=== PATIENT | female | born 1985 | race Caucasian/White ===

== ENCOUNTER → 2017-05-30 16:24 | Outpatient (CLI) | payer MEDICARE, MEDICAID, SELFPAY ==
--- NOTE | 2017-05-30 16:38 | XR_ITS ---
XR lumbar spine min 4V Ordering Physician: Cinthya Salcedo Patient Age: 31 years: Female HISTORY: ITS.REASON: ACUTE MIDLINE LOW BACK PAIN WITHOUT SCIATICA Low back pain TECHNIQUE: 5 view lumbar spine series COMPARISON :None available FINDINGS The lumbar vertebral bodies show no acute findings. 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 The vertebral bodies, pedicles otherwise unremarkable. And disc spaces well-maintained throughout Incidental segmented L1 transverse process to the left most likely reflects old feature either congenital or from old trauma here. It appears to have a sclerotic margin. It is old and not acute or recent S1 partially segmented noted. Disc spaces are fairly well maintained. No pars defects. Trace degenerative facet changes L5/S1 L4/5. IMPRESSION: 1 No acute findings lumbar spine. No acute findings lumbar vertebra. Disc spaces well-maintained. ... 2 . Suggestion of minor early degenerative facet changes L5/S1 3. Minor incidental observations in text.: ... Limbus vertebra variant L3 incidental noted.. ... Old subtle segmented left L1 transverse proces
== END ==
PROVIDERS: PCP Nurse Practitioner Family; Visit Provider Nurse Practitioner Family
DX: M54.5 Low back pain (principal)
CPT/HCPCS: 72110

== ENCOUNTER → 2017-06-14 14:22 | Outpatient (CLI) | payer MEDICARE, MEDICAID, SELFPAY ==
--- NOTE | 2017-06-14 14:28 | MR_ITS ---
MR lumbar spine wo con, MR 3-d myelogram/MRCP HISTORY: Low back pain with leg pain ITS.REASON: LOW BACK PAIN, OTHER CONGENITAL MALFORMATIONS ORDERING PHYSICIAN: Cinthya Salcedo PATIENT AGE: 32 years COMPARISON: Lumbar spine film of 05/30/2017 TECHNIQUE: Standard multiplanar multiecho sequences are performed without contrast. 3-D MIP and myelographic images are also rendered and reviewed FINDINGS: There is normal alignment. The spinal cord ends at the L2-L3 level. There is mild motion artifact which does somewhat obscure fine detail. L1-L2: Small left paracentral disc protrusion causing mild left sided lateral recess and foraminal narrowing L2-L3: Unremarkable. Limbus vertebra noted at L3 anterior superiorly better demonstrated on the plain films. L3-L4: Unremarkable. L4-L5: Unremarkable. L5-S1: There is a broad-based small central disc herniation slightly eccentric towards the right causing narrowing of the canal along with bilateral lateral recess narrowing right more extensive than the left impinging upon both S1 nerve roots slightly more prominent on the right. There is mild bilateral foraminal narrowing. There is a transitional segment at the lumbosacral junction which is labeled as S1 and correlates with the radiographs performed previously. IMPRESSION: 1. Small left paracentral disc protrusion at L1-L2. 2. Broad-based small central disc herniation slightly eccentric toward the right at L5-S1 causing bilateral foraminal narrowing right greater than left and narrowing of the canal. There is impingement upon both S1 nerve roots slightly more prominent on the right.
== END ==
PROVIDERS: Family Provider Internal Medicine; PCP Nurse Practitioner Family; Visit Provider Nurse Practitioner Family
DX: M54.5 Low back pain (principal); Q76.49 Other congenital malformations of spine, not associated with scoliosis
CPT/HCPCS: 72148; 76376

== ENCOUNTER 2017-07-05 21:07 | Emergency (ER) | payer MEDICARE, MEDICAID, SELFPAY ==
[2017-07-05 21:20] VITALS: BP 130/102; PULSE 88; RESP 18; TEMP 36.6; O2SAT 98; BMI 26.9
[2017-07-05 21:51] LABS: Strep Scrn Group A (Rapid) Negative (Negative)
--- NOTE | 2017-07-05 22:01 | HMH.EDPFEV ---
ED Disposition Clinical Impression: Viral infection Disposition: Home, Self-Care Condition on Discharge: Good Instructions: DI for Fever (Symptom) -- Adult Additional Instructions: call pcp for follow up Referrals: Cinthya Salcedo APRN [Primary Care Provider] - - Critical Care Critical Care Time: No Attestation: On 07/05/17, the high probability of a clinically significant, sudden or life threatening deterioration of the following system(s) required my full and direct attention, intervention and personal management. The time I documented below is in addition to time spent performing reported procedures but includes the following listed in this critical care notation. Medical Decision Making - Medical Records Medical records reviewed: Yes: I reviewed the patient's medical records. Vital Signs: 07/05/17 21:20 Temperature 97.8 F Temperature Source Oral Pulse Rate [Brachial] 88 Respiratory Rate 18 Blood Pressure [Right Arm] 130/102 Blood Pressure Mean [Right Arm] 111 Blood Pressure Source [Right Arm] Automatic Cuff Blood Pressure Position [Right Arm] Sitting 02 Sat by Pulse Oximetry 98 Oxygen Delivery Method Room Air - Lab Data Lab results reviewed: Yes: I reviewed the patient's lab results. Lab Results 07/05/17 21:30: Influenza Type A Ag Negative, Influenza Type B Ag Negative 07/05/17 21:30: Group A Strep Rapid Negative Orders (Tests/Meds): ORDERS Category Date Time Status Strep Screen Confirmation Routine Micro 07/05/17 21:30 Received - [place] Inquiry Pt receiving controlled substance: No Pediatric Fever HPI - General Chief Complaint: Fever Stated Complaint: Strep Test Time Seen by Provider: 07/05/17 22:01 Mode of Arrival: Ambulatory Source of Information: Patient, Medical Record Limitations: No Limitations Description of Symptoms (Recalled from ER Triage Doc. by RN): states not feeling well, thinks daughter has strep, and wants to be checked - History of Present Illness HPI narrative: not feeling well child with possible infection MD complaint: fever, sore throat Onset (ago): day(s) Context: sick contacts - Related Data Home Medications Medication Instructions Recorded Confirmed No Known Home Medications [No 07/05/17 07/05/17 Known Home Medications] Allergies Allergy/AdvReac Type Severity Reaction Status Date / Time nitrofurantoin Allergy Verified 07/05/17 21:29 [From Macrobid] Pediatric Past Medical History - Past Medical History Attestation: Yes: The following information was validated with the patient. ROS Obtained: Yes All systems reviewed & no additional complaints - Constitutional Constitutional: Denies fever(s) - Eyes Eyes: Denies change in vision - ENT Ears, Nose, Mouth, and Throat: Denies sore throat - Cardiovascular Cardiovascular: Denies chest pain - Respiratory Respiratory: No cough - Gastrointestinal Gastrointestingal: Denies: abdominal pain - Musculoskeletal Musculoskeletal: Denies joint pain - Integumentary/Breasts Skin/Breast: Denies rash - Neurologic Neurologic: Denies headache(s), Denies seizure-like activity Physical Exam - General General appearance: alert, in no apparent distress - Head Head exam: normocephalic - Eye Eye exam: Present: PERRL, EOMI. Absent: scleral icterus - ENT ENT exam: Present: normal oropharynx, mucous membranes moist, TM's normal bilaterally - Neck Neck exam: Present: trachea midline - Respiratory Respiratory exam: Present: normal lung sounds bilaterally. Absent: respiratory distress - Cardiovascular Cardiovascular exam: Present: regular rate. Absent: systolic murmur - Abdominal Exam Abdominal exam: Present: soft - Neurological Exam Neurological exam: Present: alert, oriented X3, CN II-XII intact - Psychiatric Psychiatric exam: Present: normal affect - Skin Skin exam: Absent: rash - Lymphatic Lymphatic Findings: no adenopathy
[2017-07-05 22:31] VITALS: BP 119/89; PULSE 90; RESP 20; TEMP 36.7; O2SAT 100
== END 2017-07-05 22:32 | disposition home or self-care (01) ==
PROVIDERS: Emergency Provider Emergency Medicine; Family Provider Internal Medicine; PCP Nurse Practitioner Family
DX: B34.9 Viral infection, unspecified (principal); Z88.8 Allergy status to other drugs, medicaments and biological substances
CPT/HCPCS: 87275; 87276; 87430; 99282

== ENCOUNTER → 2017-08-22 14:04 | Outpatient (POV) | payer MEDICARE, MEDICAID, SELFPAY ==
[2017-08-22 14:18] VITALS: BP 128/95; PULSE 110; RESP 20; TEMP 36.6; O2SAT 98
--- NOTE | 2017-08-22 15:10 | HMH.PMCON ---
Assessment and Plan (1) Degenerative disc disease, lumbar Current visit: Yes Status: Chronic Category: Medical Code(s): M51.36 - Other intervertebral disc degeneration, lumbar region (2) Radiculopathy Current visit: Yes Status: Chronic Category: Medical Code(s): M54.10 - Radiculopathy, site unspecified - Assessment and plan all Dx Assessment and Plan for all problems:: We will plan a L4-L5 lumbar epidural steroid injection. Patient tried and failed anti-inflammatories, medications, physical therapy. I will follow-up with this patient after her injection and reassess her symptoms at that time This note was dictated using voice recognition software and may contain errors or omissions HPI - Data of Consult Consult date: 08/22/17 Requesting Physician: Brianne Oates APRN Primary Care Provider: Cinthya Salcedo APRN Family Provider: Sebastian Sterling - Consult Narrative Reason for consult: Back pain History of present illness: Ms. Bañuelos is a 32 year old female presents for consultation in regards to her low back pain and leg pain. Patient states that her pain is 7 out of 10 today. She states that a heating pad helps decrease her pain while all activity increases it. Patient's tried and failed physical therapy. Patient states she does have weakness in her legs at times. Patient has tried diclofenac, gabapentin, ibuprofen, naproxen, tizanidine, Topamax with little relief. Patient states she has seen a neurosurgeon and she was not a surgical candidate. Patient states surgeon discussed potential epidural steroid injections. Patient does have left paracentral disc protrusion at L1-L2 and impingement of the S1 nerve root. Patient is interested in injective therapy CC: Brianne Oates APRN [facility] History I have reviewed the patient's past medical history: Yes Medical History: Denies:: Cancer, Diabetes Mellitus Type 1, Diabetes Mellitus Type 2, MRSA Other Medical History: Reports: Anemia, Arthritis Amputation: No - *Social History Educational Level: Attended High School Smoking Status: Never smoker Alcohol Intake: never Occupational Status: disabled Housing: apartment Household Members: significant other, children - Psychiatric History Expresses thoughts of harming self/others: None Suicide Plan Description: No Plan *Family Hx:: Unable to obtain Review of Systems - Review of Systems ROS General: no recent weight change, no fever, no sleep disturbances Respiratory: no cough, no shortness of air, no recurring pulmonary infections Cardiovascular/Peripheral Vascular: No chest pain, No palpitations, no edema, no shortness of breath. Gastrointestinal: no incontinence, normal bowel movements reported Genitourinary: no incontinence Musculoskeletal: Back pain, bilateral leg pain Psychiatric: normal mood/ affect, Neurological: Weakness in bilateral lower extremities at times, [denies balance issues] Meds Home Medications Medication Instructions Recorded Confirmed Type No Known Home Medications 07/05/17 07/05/17 History Allergies Allergy/AdvReac Type Severity Reaction Status Date / Time nitrofurantoin Allergy Verified 07/05/17 21:29 [From Macrobid] Objective Vital signs: Temp Pulse Resp BP Pulse Ox 97.8 F 110 H 20 128/95 98 08/22/17 14:18 08/22/17 14:18 08/22/17 14:18 08/22/17 14:18 08/22/17 14:18 Narrative: Physical Exam General: Alert and oriented x3, no acute distress, pleasant and cooperative, [on room air] Lungs: Resps E/U, Symmetrical chest expansion, Eyes: PERRL Musculoskeletal: Flexion and extension of lumbar spine somewhat guarded secondary to pain, deep tendon reflexes normal, strength in upper and lower extremities [5/5], [abnormal gait noted], positive straight leg test bilaterally at 30? Neurological: speech clear, small products ii assembler equal, no gross sensory deficits Opioid Risk Tool - Opioid Risk Tool-Female Fami
--- NOTE | 2017-08-22 15:13 | P.CONS_ITS ---
Assessment and Plan (1) Degenerative disc disease, lumbar Current visit: Yes Status: Chronic Category: Medical Code(s): M51.36 - Other intervertebral disc degeneration, lumbar region (2) Radiculopathy Current visit: Yes Status: Chronic Category: Medical Code(s): M54.10 - Radiculopathy, site unspecified - Assessment and plan all Dx Assessment and Plan for all problems:: We will plan a L4-L5 lumbar epidural steroid injection. Patient tried and failed anti-inflammatories, medications, physical therapy. I will follow-up with this patient after her injection and reassess her symptoms at that time This note was dictated using voice recognition software and may contain errors or omissions HPI - Data of Consult Consult date: 08/22/17 Requesting Physician: Brianne Oates APRN Primary Care Provider: Cinthya Salcedo APRN Family Provider: Sebsatian Sterling - Consult Narrative Reason for consult: Back pain History of present illness: Ms. Bañuelos is a 32 year old female presents for consultation in regards to her low back pain and leg pain. Patient states that her pain is 7 out of 10 today. She states that a heating pad helps decrease her pain while all activity increases it. Patient's tried and failed physical therapy. Patient states she does have weakness in her legs at times. Patient has tried diclofenac, gabapentin, ibuprofen, naproxen, tizanidine, Topamax with little relief. Patient states she has seen a neurosurgeon and she was not a surgical candidate. Patient states surgeon discussed potential epidural steroid injections. Patient does have left paracentral disc protrusion at L1-L2 and impingement of the S1 nerve root. Patient is interested in injective therapy CC: Brinane Oates APRN [facility] History I have reviewed the patient's past medical history: Yes Medical History: Denies:: Cancer, Diabetes Mellitus Type 1, Diabetes Mellitus Type 2, MRSA Other Medical History: Reports: Anemia, Arthritis Amputation: No - *Social History Educational Level: Attended High School Smoking Status: Never smoker Alcohol Intake: never Occupational Status: disabled Housing: apartment Household Members: significant other, children - Psychiatric History Expresses thoughts of harming self/others: None Suicide Plan Description: No Plan *Family Hx:: Unable to obtain Review of Systems - Review of Systems ROS General: no recent weight change, no fever, no sleep disturbances Respiratory: no cough, no shortness of air, no recurring pulmonary infections Cardiovascular/Peripheral Vascular: No chest pain, No palpitations, no edema, no shortness of breath. Gastrointestinal: no incontinence, normal bowel movements reported Genitourinary: no incontinence Musculoskeletal: Back pain, bilateral leg pain Psychiatric: normal mood/ affect, Neurological: Weakness in bilateral lower extremities at times, [denies balance issues] Meds Home Medications Medication Instructions Recorded Confirmed Type No Known Home Medications 07/05/17 07/05/17 History Allergies Allergy/AdvReac Type Severity Reaction Status Date / Time nitrofurantoin Allergy Verified 07/05/17 21:29 [From Macrobid] Objective Vital signs: Temp Pulse Resp BP Pulse Ox 97.8 F 110 H 20 128/95 98 08/22/17 14:18 08/22/17 14:18 08/22/17 14:18 08/22/17 14:18 08/22/17 14:18
== END ==
PROVIDERS: Family Provider Internal Medicine; PCP Nurse Practitioner Family; Visit Provider Clinical Nurse Specialist Family Health
DX: M51.36 Other intervertebral disc degeneration, lumbar region (principal)
CPT/HCPCS: 99202

== ENCOUNTER → 2017-11-07 11:15 | Outpatient (POV) | payer MEDICARE, MEDICAID, SELFPAY ==
[2017-11-07 11:23] VITALS: BP 120/85; PULSE 78; RESP 18; O2SAT 99; BMI 22.2
--- NOTE | 2017-11-07 11:43 | P.CONS_ITS ---
[facility] Pain Management SOAP Note Subjective:: Patient is a pleasant 32-year-old white female who we are treating for low back pain and pain. Most of her pain is down her right leg patient is following up after her first lumbar epidural injection. She states that she was worse for about 4 days however she is doing better today she rates her pain relieved up to 50%. Patient is interested in completing a epidural steroid injection series. Patient's tried and failed physical therapy, oral medications and anti- inflammatories. Patient rates her pain a 6 out of 10 today. Patient states that her pain is worse due to the fact that she is sleeping on a futon. Patient states that she is unable to purchase a mattress after she threw her last one out due to bedbugs. Patient states most of her pain is in her low back and down her right leg however she does have some left leg pain at times. ROS General: no recent weight change, no fever, no sleep disturbances Respiratory: no cough, no shortness of air, no recurring pulmonary infections Cardiovascular/Peripheral Vascular: No chest pain, No palpitations, no edema, no shortness of breath. Gastrointestinal: no incontinence, normal bowel movements reported Genitourinary: no incontinence Musculoskeletal: Back pain, leg pain Psychiatric: normal mood/ affect Neurological: [denies weakness in extremities], [denies balance issues] Objective:: Physical Exam General: Alert and oriented x3, no acute distress, pleasant and cooperative, [ on room air] Lungs: Resps E/U, Symmetrical chest expansion, Eyes: PERRL Musculoskeletal: Flexion and extension of lumbar spine somewhat guarded secondary to pain, deep tendon reflexes normal, strength in upper and lower extremities [5/5], slightly antalgic gait noted, positive straight leg raise test at 30? on the right side. Neurological: speech clear, financial administrative assistant equal, no gross sensory deficits Assessment:: Degenerative disc disease of the lumbar spine with lumbar radiculopathy some Plan:: We will repeat her L4-L5 lumbar epidural steroid injection I will follow-up with this patient after her second injection. Patient is not on any anticoagulation therapy. Patient's tried and failed other conservative therapies. This note was dictated using voice recognition software and may contain errors or omissions
== END ==
PROVIDERS: Family Provider Internal Medicine; PCP Nurse Practitioner Family; Visit Provider Clinical Nurse Specialist Family Health
DX: M54.16 Radiculopathy, lumbar region (principal)
CPT/HCPCS: 99212

== ENCOUNTER → 2018-01-16 09:25 | Outpatient (POV) | payer MEDICARE, MEDICAID, SELFPAY ==
[2018-01-16 09:36] VITALS: BP 118/87; PULSE 105; RESP 18; O2SAT 100; BMI 25.6
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
== END ==
PROVIDERS: Family Provider Internal Medicine; PCP Family Medicine; Visit Provider Clinical Nurse Specialist Family Health
DX: M51.16 Intervertebral disc disorders with radiculopathy, lumbar region (principal)
CPT/HCPCS: 99213

== ENCOUNTER → 2018-02-14 08:58 | Outpatient (CLI) | payer MEDICARE, MEDICAID, SELFPAY ==
[2018-02-14 09:15] VITALS: BP 109/92; PULSE 89; RESP 18; TEMP 36.7; O2SAT 93
== END ==
PROVIDERS: Family Provider Internal Medicine; PCP Family Medicine; Visit Provider Allergy & Immunology
DX: J45.50 Severe persistent asthma, uncomplicated (principal)
CPT/HCPCS: 96372; J2182

== ENCOUNTER → 2018-03-07 08:54 | Outpatient (POV) | payer MEDICARE, MEDICAID, SELFPAY ==
[2018-03-07 09:21] VITALS: BP 133/82; PULSE 107; RESP 18; O2SAT 98; BMI 25.4
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
== END ==
PROVIDERS: PCP Family Medicine; Visit Provider Clinical Nurse Specialist Family Health
DX: M51.16 Intervertebral disc disorders with radiculopathy, lumbar region (principal)
CPT/HCPCS: 99213

== ENCOUNTER → 2018-03-13 07:58 | Outpatient (CLI) | payer MEDICARE, MEDICAID, SELFPAY ==
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
== END ==
PROVIDERS: PCP Nurse Practitioner Family; Visit Provider Clinical Nurse Specialist Family Health
DX: M54.5 Low back pain (principal)
CPT/HCPCS: 72148; 76376

== ENCOUNTER 2018-03-14 08:23 | Outpatient (CLI) | payer MEDICARE, MEDICAID, SELFPAY ==
[2018-03-14 09:00] VITALS: BP 113/79; PULSE 92; RESP 20; TEMP 36.6; O2SAT 97
== END 2018-03-14 09:10 | disposition home or self-care (01) ==
LOC: INF 08:25
PROVIDERS: Visit Provider Allergy & Immunology
DX: J45.50 Severe persistent asthma, uncomplicated (principal)
CPT/HCPCS: 96372; J2182

== ENCOUNTER 2018-04-11 08:45 | Outpatient (CLI) | payer MEDICARE, MEDICAID, SELFPAY ==
[2018-04-11 09:04] VITALS: BP 129/91; PULSE 93; RESP 20; TEMP 36.3; O2SAT 99
== END 2018-04-11 09:40 | disposition home or self-care (01) ==
LOC: INF 08:52
PROVIDERS: Visit Provider Allergy & Immunology
DX: J45.50 Severe persistent asthma, uncomplicated (principal)
CPT/HCPCS: 96372; J2182

== ENCOUNTER → 2018-04-17 08:43 | Outpatient (POV) | payer MEDICARE, MEDICAID, SELFPAY ==
[2018-04-17 08:54] VITALS: BP 149/95; PULSE 99; RESP 18; O2SAT 99; BMI 26.0
--- NOTE | 2018-04-17 09:02 | HMH.PAINSOAP ---
[facility] Pain Management SOAP Note Subjective:: Patient is a pleasant 32-year-old white female who presents today for follow-up after MRI. Patient rates her pain a 6 out of 10 and states that she has continual pain down her legs. Patient has tried injections multiple times with no relief. Patient does have an L5-S1 bulging disc. We will have her receive the new MRI so that she can be seen by a neurosurgeon. ROS General: no recent weight change, no fever, no sleep disturbances Respiratory: no cough, no shortness of air, no recurring pulmonary infections Cardiovascular/Peripheral Vascular: No chest pain, No palpitations, no edema, no shortness of breath. Gastrointestinal: no incontinence, normal bowel movements reported Genitourinary: no incontinence Musculoskeletal: Back pain, leg pain Psychiatric: normal mood/ affect Neurological: [denies weakness in extremities], [denies balance issues] Objective:: Physical Exam General: Alert and oriented x3, no acute distress, pleasant and cooperative, [on room air] Lungs: Resps E/U, Symmetrical chest expansion, Eyes: PERRL Musculoskeletal: Flexion and extension of lumbar spine somewhat guarded secondary to pain, deep tendon reflexes normal, strength in upper and lower extremities [5/5], slightly antalgic gait noted Neurological: speech clear, septic tank service technician equal, no gross sensory deficits Assessment:: 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 Stein. This note was dictated using voice recognition software and may contain errors or omissions
--- NOTE | 2018-04-17 09:05 | P.CONS_ITS ---
[facility] Pain Management SOAP Note Subjective:: Patient is a pleasant 32-year-old white female who presents today for follow-up after MRI. Patient rates her pain a 6 out of 10 and states that she has continual pain down her legs. Patient has tried injections multiple times with no relief. Patient does have an L5-S1 bulging disc. We will have her receive the new MRI so that she can be seen by a neurosurgeon. ROS General: no recent weight change, no fever, no sleep disturbances Respiratory: no cough, no shortness of air, no recurring pulmonary infections Cardiovascular/Peripheral Vascular: No chest pain, No palpitations, no edema, no shortness of breath. Gastrointestinal: no incontinence, normal bowel movements reported Genitourinary: no incontinence Musculoskeletal: Back pain, leg pain Psychiatric: normal mood/ affect Neurological: [denies weakness in extremities], [denies balance issues] Objective:: Physical Exam General: Alert and oriented x3, no acute distress, pleasant and cooperative, [on room air] Lungs: Resps E/U, Symmetrical chest expansion, Eyes: PERRL Musculoskeletal: Flexion and extension of lumbar spine somewhat guarded secondary to pain, deep tendon reflexes normal, strength in upper and lower extremities [5/5], slightly antalgic gait noted Neurological: speech clear, 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 Stein. This note was dictated using voice recognition software and may contain errors or omissions
== END ==
PROVIDERS: PCP Nurse Practitioner Family; Visit Provider Clinical Nurse Specialist Family Health
DX: M51.16 Intervertebral disc disorders with radiculopathy, lumbar region (principal)
CPT/HCPCS: 99213

== ENCOUNTER 2018-05-16 09:13 | Outpatient (CLI) | payer MEDICARE, MEDICAID, SELFPAY ==
[2018-05-16 09:20] VITALS: BP 119/77; PULSE 93; RESP 20; TEMP 36.5; O2SAT 99
== END 2018-05-16 09:45 | disposition home or self-care (01) ==
LOC: INF 09:13
PROVIDERS: Visit Provider Allergy & Immunology
DX: J45.50 Severe persistent asthma, uncomplicated (principal)
CPT/HCPCS: 96372; J2182

== ENCOUNTER → 2018-06-09 07:54 | Outpatient (CLI) | payer OTHER, MEDICARE, MEDICAID, SELFPAY ==
--- NOTE | 2018-06-09 07:59 | MR_ITS ---
MR cervical spine wo con, MR 3-d myelogram/MRCP HISTORY: Neck pain, headaches, bilateral shoulder pain with tingling down left arm ITS.REASON: HEADACHES, NECK PAIN ORDERING PHYSICIAN: Manjula Ray PATIENT AGE: 32 years Comparison: None TECHNIQUE: Standard multiplanar multiecho sequences are performed without contrast. 3-D MIP and myelographic images are also rendered and reviewed FINDINGS: There is mild degree of motion artifact which somewhat degrades fine detail. There is slight reversal the cervical lordosis which may be due to positioning or muscle spasm The odontoid process is prominent and angles posteriorly causing narrowing of the craniocervical junction. There is mild dorsal buckling of the upper cervical cord. However, the odontoid process does not appear to be causing any direct impingement upon the cord. C2-C3: Unremarkable. C3-C4: Unremarkable. C4-C5: There is a small central disc herniation with minimal superior extrusion. This is causing some compression upon the anterior aspect of the cord and flattening of the cord anteriorly. There is resultant narrowing of the canal at 8 mm from the disc. C5-C6: Minimal central disc protrusion versus prominent posterior longitudinal ligament with narrowing of the canal at 10 mm. C6-C7: There is a small broad-based central and right paracentral disc protrusion which is causing narrowing of the canal at 9 mm and mild impingement and mild flattening of the central right aspect of the cord. C7-T1: Unremarkable. IMPRESSION: 1. Reversal of the cervical lordosis which may be due to patient positioning or muscle spasm. 2. Prominent odontoid process which angles posteriorly causing narrowing of the craniocervical junction at approximately 10 mm. There is mild dorsal buckling of the upper cervical cord. However, the odontoid process does not appear to be causing any direct impingement upon the cord. 3. C4-C5: There is a small central disc herniation with minimal superior extrusion. This is causing some compression upon the anterior aspect of the cord and flattening of the cord anteriorly. There is resultant narrowing of the canal at 8 mm from the disc. 4. C5-C6: Minimal central disc protrusion versus prominent posterior longitudinal ligament with narrowing of the canal at 10 mm. 5. C6-C7: There is a small broad-based central and right paracentral disc protrusion which is causing narrowing of the canal at 9 mm and mild impingement and mild flattening of the central right aspect of the cord
== END ==
PROVIDERS: PCP Family Medicine; Visit Provider Physician Assistant Medical
DX: M54.2 Cervicalgia (principal); R51 Headache
CPT/HCPCS: 72141; 76376

== ENCOUNTER 2018-06-13 08:42 | Outpatient (CLI) | payer MEDICARE, MEDICAID, SELFPAY ==
[2018-06-13 08:56] VITALS: BP 140/85; PULSE 100; RESP 20; TEMP 36.6; O2SAT 100
== END 2018-06-13 09:30 | disposition home or self-care (01) ==
LOC: INF 08:42
PROVIDERS: Visit Provider Allergy & Immunology
DX: J45.50 Severe persistent asthma, uncomplicated (principal)
CPT/HCPCS: 96372; J2182

== ENCOUNTER 2018-07-25 09:02 | Outpatient (CLI) | payer MEDICARE, MEDICAID, SELFPAY ==
[2018-07-25 09:26] VITALS: BP 107/58; PULSE 105; RESP 18; TEMP 36.8; O2SAT 98
== END 2018-07-25 09:50 | disposition home or self-care (01) ==
LOC: INF 09:02
PROVIDERS: Visit Provider Allergy & Immunology
DX: J45.50 Severe persistent asthma, uncomplicated (principal)
CPT/HCPCS: 96372; J2182

== ENCOUNTER 2018-08-25 08:56 | Outpatient (CLI) | payer MEDICARE, MEDICAID, SELFPAY ==
[2018-08-25 08:58] VITALS: BMI 24.2
[2018-08-25 09:04] VITALS: BP 124/77; PULSE 105; RESP 20; TEMP 36.7; O2SAT 92
== END 2018-08-25 09:49 | disposition home or self-care (01) ==
LOC: INF 08:56
PROVIDERS: Visit Provider Allergy & Immunology
DX: J45.50 Severe persistent asthma, uncomplicated (principal)
CPT/HCPCS: 96372; J2182

== ENCOUNTER 2018-09-22 08:35 | Outpatient (CLI) | payer MEDICARE, MEDICAID, SELFPAY ==
[2018-09-22 08:55] VITALS: BP 107/73; PULSE 96; RESP 20; O2SAT 98
== END 2018-09-22 09:20 | disposition home or self-care (01) ==
LOC: INF 08:39
PROVIDERS: Visit Provider Allergy & Immunology
DX: J45.50 Severe persistent asthma, uncomplicated (principal)
CPT/HCPCS: 96372; J2182

== ENCOUNTER → 2018-10-20 09:20 | Outpatient (CLI) | payer MEDICARE, MEDICAID, SELFPAY ==
--- NOTE | 2018-10-20 09:26 | XR_ITS ---
XR shoulder RT min 2V HISTORY: ITS.REASON: ACUTE RT SHOULDER PAIN, RT ARM NUMBNESS ORDERING PHYSICIAN: Cinthya Salcedo APRN PATIENT AGE: 33 years Comparison: None FINDINGS: No fracture or dislocation. No lytic or blastic change. There is normal mineralization. The joint spaces are well-preserved. No significant degenerative/arthritic changes. No erosive changes evident. IMPRESSION: Negative, no acute finding
== END ==
PROVIDERS: PCP Nurse Practitioner Family; Visit Provider Nurse Practitioner Family
DX: M25.511 Pain in right shoulder (principal); R20.0 Anesthesia of skin
CPT/HCPCS: 73030

== ENCOUNTER 2018-10-25 11:50 | Outpatient (CLI) | payer MEDICARE, MEDICAID, SELFPAY ==
[2018-10-25 12:10] VITALS: BP 130/95; PULSE 113; RESP 18; TEMP 36.3; O2SAT 97
== END 2018-10-25 12:34 | disposition home or self-care (01) ==
LOC: INF 11:59
PROVIDERS: Visit Provider Allergy & Immunology
DX: J45.50 Severe persistent asthma, uncomplicated (principal)
CPT/HCPCS: 96372; J2182

== ENCOUNTER 2018-11-22 12:47 | Outpatient (CLI) | payer MEDICARE, MEDICAID, SELFPAY ==
[2018-11-22 13:05] VITALS: BP 114/71; PULSE 103; RESP 18; TEMP 36.6; O2SAT 96
== END 2018-11-22 13:25 | disposition home or self-care (01) ==
LOC: INF 12:47
PROVIDERS: Visit Provider Allergy & Immunology
DX: J45.50 Severe persistent asthma, uncomplicated (principal)
CPT/HCPCS: 96372; J2182

== ENCOUNTER 2018-12-20 10:45 | Outpatient (CLI) | payer MEDICARE, MEDICAID, SELFPAY ==
[2018-12-20 11:05] VITALS: BP 117/84; PULSE 93; RESP 18; O2SAT 100
== END 2018-12-20 11:20 | disposition home or self-care (01) ==
LOC: INF 10:49
PROVIDERS: Visit Provider Allergy & Immunology
DX: J45.50 Severe persistent asthma, uncomplicated (principal)
CPT/HCPCS: 96372; J2182

== ENCOUNTER 2019-01-17 09:46 | Outpatient (CLI) | payer MEDICARE, MEDICAID, SELFPAY ==
[2019-01-17 10:16] VITALS: BP 112/79; PULSE 104; RESP 20; TEMP 36.8; O2SAT 100
== END 2019-01-17 10:35 | disposition home or self-care (01) ==
LOC: INF 09:46
PROVIDERS: Visit Provider Allergy & Immunology
DX: J45.50 Severe persistent asthma, uncomplicated (principal)
CPT/HCPCS: 96372; J2182

== ENCOUNTER 2021-07-29 11:04 | Emergency (ER) | payer MEDICARE, MEDICAID, SELFPAY ==
[2021-07-29 13:38] VITALS: BP 120/90; PULSE 104; RESP 19; TEMP 37.1; O2SAT 100; BMI 25.2
--- NOTE | 2021-07-29 14:18 | HMH.EDUTC ---
[facility] [place] Disposition Clinical Impression: Viral syndrome Disposition: Home, Self-Care Condition on Discharge: Good Instructions: DI for Viral Syndrome Additional Instructions: Drink plenty of fluids. Take tylenol or ibuprofen for pain or fever. Take the medications as directed. Follow up with your regular doctor. GO TO THE ER FOR ANY WORSENING SYMPTOMS Prescriptions: Brompheniramine/Pseudoephed/Dm [Bromfed Dm Cough Syrup] 5 ml PO Q6HP PRN #240 ml PRN Reason: Cough Transmission Status: Received by [facility] Brompheniramine/Pseudoephed/Dm [Bromfed Dm Cough Syrup] 5 ml PO Q6HP PRN #240 ml PRN Reason: Cough Transmission Status: Received by [facility] Ondansetron [Zofran 4mg ODT] 4 mg PO Q8HP PRN #20 tab PRN Reason: Nausea Transmission Status: Received by [facility] Referrals: James Duff MD [Primary Care Provider] - Forms: Work/School Release Time of Disposition: 15:28 Medical Decision Making - Medical Records Medical records reviewed: No: I reviewed the patient's medical records. - [place] Inquiry Pt receiving controlled substance: No Vital Signs: 07/29/21 13:38 07/29/21 15:19 Temperature 98.7 F 98.7 F Temperature Source Oral Pulse Rate 104 H Pulse Rate [Left] 104 H Respiratory Rate 19 19 Blood Pressure 120/90 Blood Pressure [Right Arm] 120/90 Blood Pressure Mean [Right Arm] 100 02 Sat by Pulse Oximetry 100 - Lab Data Lab results reviewed: Yes: I reviewed the patient's lab results. Lab Results 07/29/21 13:45: Influenza Type A Ag Negative, Influenza Type B Ag Negative [facility] [place] HPI - General Stated complaint: sore throat, h/a, congestion, cough Time Seen by Provider: 07/29/21 14:18 Mode of Arrival: Ambulatory Source of Information: Patient Limitations: No Limitations Description of Symptoms (Recalled from Triage Doc. by RN): pt c/o a sore throat, cough, wheezing, fatigue, MAC and chest congestion x2 wks. pt states she is on an antibiotic for a UTI. HEENT Symptoms (Recalled from RN notes): Yes Resp Symptoms (Recalled from RN notes): Yes Skin Symptoms (Recalled from RN notes): No MS Symptoms (Recalled from RN notes): No Functional Status (Recalled from RN notes): wnl - History of Present Illness Provider Complaint: She states that she has felt bad for the past 2 weeks. she has a cough, chest congestion. - Related Data Home Medications Medication Instructions Recorded Confirmed Albuterol Sulfate [Proair Hfa 90 mcg INHALATION BID 08/23/17 01/17/19 90mcg/puff Inh] Diclofenac Sodium [Diclofenac 75mg 75 mg PO BID 08/23/17 01/17/19 Tab] Montelukast Sodium [Montelukast 10 mg PO DAILY 08/23/17 01/17/19 10mg Tab] Albuterol Sulfate [Albuterol 1.25 mg IH NEEDED PRN 02/14/18 01/17/19 0.042% 1.25mg/3mL neb] Azelastine HCl [Astepro] 205.5 mcg NS DAILY 02/14/18 01/17/19 Fluticasone/Salmeterol [Advair 1 inh IH BID 02/14/18 01/17/19 100/50mcg diskus] norgestimate-ethinyl estradioL 1 each PO DAILY 08/25/18 01/17/19 [Sprintec 28 Day Tablet] loratadine 10 mg capsule 10 mg PO DAILY 12/12/18 01/17/19 Previous Rx's Medication Instructions Recorded oxcarbazepine 150 mg tablet See Rx Instructions PO BID #30 tab 12/12/18 Brompheniramine/Pseudoephed/Dm 5 ml PO Q6HP PRN #240 ml 07/29/21 [Bromfed Dm Cough Syrup] Brompheniramine/Pseudoephed/Dm 5 ml PO Q6HP PRN #240 ml 07/29/21 [Bromfed Dm Cough Syrup] Ondansetron [Zofran 4mg ODT] 4 mg PO Q8HP PRN #20 tab 07/29/21 Allergies Allergy/AdvReac Type Severity Reaction Status Date / Time nitrofurantoin Allergy Mild Nausea Verified 12/12/18 10:02 [From Macrobid] olanzapine [From Zyprexa] Allergy Mild Nausea Verified 12/12/18 10:02 sertraline [From Zoloft] Allergy Mild Nausea Verified 12/12/18 10:02 paroxetine [From Paxil] Allergy Verified 07/29/21 13:41 - Worker's Comp Is this a Worker's Comp case?: No [facility] History - Hepatitis A Sc
[2021-07-29 14:26] LABS: UTC Influenza A Antigen Negative (Negative); UTC Influenza B Antigen Negative (Negative)
[2021-07-29 15:19] VITALS: BP 120/90; PULSE 104; RESP 19; TEMP 37.1
== END 2021-07-29 15:34 | disposition home or self-care (01) ==
PROVIDERS: Emergency Provider Nurse Practitioner Family; PCP Emergency Medicine
DX: B34.9 Viral infection, unspecified (principal); J02.9 Acute pharyngitis, unspecified
CPT/HCPCS: 87804; 99212; G0463

== ENCOUNTER 2023-12-09 12:23 | Outpatient (CLI) | payer MEDICARE, MEDICAID, SELFPAY ==
[2023-12-09 12:39] LABS: Basophils % 0.1 % (0.1-2.0); Eosinophils # 0.3 K/mm3 (0.0-0.4); Eosinophils % 1.8 % (0.1-12.0); Hematocrit 36.3 % (37.0-47.0); Hemoglobin 11.1 g/dL (12.2-16.2); Lymphocytes # 3.8 K/mm3 (0.7-4.5); Lymphocytes % 21.1 % (10-50); Mean Corpuscular HGB Conc 30.7 g/dL (31.8-35.4); Mean Corpuscular Hemoglobin 27.6 pg (27.0-31.2); Mean Corpuscular Volume 89.9 fl (81-99); Monocytes # 0.7 K/mm3 (0.1-1.0); Monocytes % 3.8 % (1.7-9.3); Neutrophils # 13.2 K/mm3 (1.8-7.8); Neutrophils % 73.2 % (37.0-80.0); Platelet Count 410 K/mm3 (142-424); Red Blood Count 4.04 M/mm3 (4.20-5.40); Red Cell Distribution Width 16.6 % (11.5-17.5)
[2023-12-09 12:53] LABS: MANUAL DIFFERENTIAL MANUAL DIFFERENTIAL (MANUAL DIFF)
[2023-12-09 13:38] LABS: Eosinophils % 1 % (0-3); Lymphocytes % 27 % (10-50); Monocytes % 5 % (2-9); Neutrophils % 67 % (42-76); Platelet Estimate Normal; RBC Morphology Normal; Total Cells Counted 100
[2023-12-16 06:14] LABS: D001-IgE D pteronyssinus <0.10 kU/L (Class 0); D002-IgE D farinae <0.10 kU/L (Class 0); E001-IgE Cat Dander <0.10 kU/L (Class 0); E005-IgE Dog Dander <0.10 kU/L (Class 0); E072-IgE Mouse Urine <0.10 kU/L (Class 0); G002-IgE Bermuda Grass <0.10 kU/L (Class 0); G006-IgE Timothy Grass <0.10 kU/L (Class 0); I006-IgE Cockroach, German <0.10 kU/L (Class 0); Immunoglobulin E, Total 61 IU/mL (6-495); M001-IgE Penicillium chrysogen <0.10 kU/L (Class 0); M002-IgE Cladosporium herbarum <0.10 kU/L (Class 0); M003-IgE Aspergillus fumigatus <0.10 kU/L (Class 0); M006-IgE Alternaria alternata <0.10 kU/L (Class 0); T001-IgE Maple/Box Elder <0.10 kU/L (Class 0); T003-IgE Common Silver Birch <0.10 kU/L (Class 0); T006-IgE Cedar, Mountain <0.10 kU/L (Class 0); T007-IgE Oak, White <0.10 kU/L (Class 0); T008-IgE Elm, American <0.10 kU/L (Class 0); T010-IgE Walnut <0.10 kU/L (Class 0); T011-IgE Maple Leaf Sycamore <0.10 kU/L (Class 0); T014-IgE Cottonwood <0.10 kU/L (Class 0); T015-IgE Ash, White <0.10 kU/L (Class 0); T022-IgE Pecan, Hickory <0.10 kU/L (Class 0); T070-IgE White Mulberry <0.10 kU/L (Class 0); W001-IgE Ragweed, Short <0.10 kU/L (Class 0); W011-IgE Thistle, Russian <0.10 kU/L (Class 0); W014-IgE Pigweed, Common <0.10 kU/L (Class 0); W018-IgE Sheep Sorrel <0.10 kU/L (Class 0)
== END 2023-12-09 23:59 | disposition home or self-care (01) ==
LOC: LAB 12:23
PROVIDERS: PCP Emergency Medicine; Visit Provider Internal Medicine Pulmonary Disease
DX: J30.9 Allergic rhinitis, unspecified
CPT/HCPCS: 36415; 82785; 85007; 85025; 85027; 86003

== ENCOUNTER 2024-06-11 09:30 | Outpatient (CLI) | payer MEDICARE, MEDICAID, SELFPAY ==
[2024-06-11 10:35] VITALS: PULSE 78; PULSE 86
[2024-06-11] MEDS: ALBUTEROL 0.083% 2.5 MG/3 ML NEB IH (10:35)
== END 2024-06-11 23:59 | disposition home or self-care (01) ==
LOC: RT 09:32
PROVIDERS: PCP Emergency Medicine; Visit Provider Internal Medicine Pulmonary Disease
DX: R06.09 Other forms of dyspnea (principal)
CPT/HCPCS: 94060; 94618; 94640; 94726; 94729; J7613

== ENCOUNTER 2024-09-13 14:21 | Outpatient (CLI) | payer MEDICARE, MEDICAID, SELFPAY ==
--- OUTSIDE RECORDS SUMMARY | 2024-09-13 14:24 | XMS_ITS | Data Portability ---
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 500 mg capsule TAKE 1 CAPSULE BY MOUTH TWICE DAILY FOR 10 DAYS 08/10 completed Not Available Not Available Not Available promethazin e-DM 6.25 mg-15 mg/5 mL oral syrup Take 5 mL every 8 hours by oral route as needed for 5 days. 2024 active Not Available Not Available Not Avai lable nystatin 100,000 unit/mL oral suspension SWISH WITH 5 ML AND THEN SPIT 4 TIMES A DAY FOR AT LEAST 10 DAYS UNTIL THRUSH/HO ARSENESS RESOLVES active Not Available Not Available No t Available norgestimat e 0.25 mg-ethinyl estradiol 0.035 mg tablet TAKE ONE TABLET BY MOUTH daily DIRECTED active Not Available Not Available No t Available doxycycline hyclate 100 mg capsule Take 1 capsule twice a day by oral route. active Not Available Not Available No t Available clindamycin HCl 300 mg capsule 06/28 completed Not Available Not Available Not Available albuterol sulfate 2.5 mg/3 mL (0.083 %) solution for nebulizatio n Inhale 1 vial(3ml) every four to six hours as needed active Not Available Not Available No t Available trazodone 50 mg tablet 01/25 completed Not Available Not Available Not Available cetirizine 10 mg tablet Take 1 tablet by mouth once daily active Not Available Not Available No t Available Zithromax 1 gram oral packet Take 1 packet by oral route. 12/26 completed Not Available Not Available Not Available oxybutynin chloride ER 10 mg tablet,exte nded release 24 hr Take 1 tablet every day by oral route for 30 days. 07/26 completed Not Available Not Available Not Available azithromyci n 250 mg tablet TAKE 2 TABLETS (500 MG) BY ORAL ROUTE ONCE DAILY FOR 1 DAY THEN 1 TABLET (250 MG) BY ORAL ROUTE ONCE DAILY FOR 4 DAYS 12/26 completed Not Available Not Available Not Available fluconazole 150 mg tablet Take 1 tablet every day by oral route for 3 days. 12/26 completed Not Available Not Available Not Available benzonatate 200 mg capsule Take 1 capsule 3 times a day by oral route. 12/26 completed Not Available Not Available Not Available ondansetron HCl 8 mg tablet Take 1 tablet twice a day by oral route. 05/16 completed Not Available Not Available Not Available fluconazole 200 mg tablet take 1 tablet once a day for 3 day(s) 01/19 completed Not Available Not Available Not Available phenazopyri dine 200 mg tablet Take 1 tablet 3 times a day by oral route for 3 days. 11/27 completed Not Available Not Available Not Available sumatriptan 25 mg tablet take 1 tab by mouth with fluids sdaiq upon onset of migraine. If headache returns, dose may be repeated in 2 hours. Max daily dose 8 tabs 01/27 completed Not Available Not Available Not Available prednisone 20 mg tablet Take 2 tablets every day by oral route. active Not Available Not Available No t Available ceftriaxone 250 mg solution for injection Take 250 mg by injection route. 12/26 completed Not Available Not Available Not Available metronidazo le 500 mg tablet Take 1 tablet every 8 hours by oral route. 06/28 completed Not Available Not Available Not Available acetaminoph en 300 mg-codeine 30 mg tablet Take 1 tablet every day by oral route as needed for 30 days. active Not Available Not Available No t Available fexofenadin e 180 mg tablet TAKE ONE TABLET BY MOUTH ONCE DAILY active Not Available Not Available No t Available prochlorper azine maleate 10 mg tablet TAKE ONE TABLET BY MOUTH EVERY 8 HOURS NEEDED 01/27 completed Not Available Not Available Not Available trimethopri m 100 mg tablet TAKE 1 tablet Twice a day for 7 days and then once a day FOR 30 days 01/19 completed Not Available Not Available Not Available ciprofloxac in 500 mg tablet Take 1 tablet every 12 hours by oral route as directed for 7 days. 04/02 completed Not Available Not Available Not Available sulfamethox azole 800 mg-trimetho prim 160 mg tablet TAKE 1 TABLET ORAL ROUTE EVERY 12 HOURS FOR 10 DAYS 12/26 completed Not Available Not Available Not Available omeprazole 40 mg capsule,del ayed release take 1 capsule(4 0 mg) orally daily active Not Available Not Available No t Available lovastatin 10 mg tablet TAKE ONE TABLET BY MOUTH EVERY DAY active Not Available Not Available No t Available tramadol 50 mg tablet Take 1 tablet 3 times a day by oral route for 5 days. 05/16 completed Not Available Not Available Not Available amoxicillin 500 mg tablet TAKE 1 TABLET BY MOUTH THREE TIMES DAILY UNTIL GONE 03/19 completed Not Available Not Available Not Available ketorolac 10 mg tablet TAKE 1 TABLET BY MOUTH EVERY 6 HOURS NEEDED FOR MODERATE PAIN\ 01/19 completed Not Available Not Available Not Available ofloxacin 0.3 % ear drops Instill 4 drops into affected ear twice a day 03/16 completed Not Available Not Available Not Available amoxicillin 875 mg tablet Take 1 tablet every 12 hours by oral route. 03/19 completed Not Available Not Available Not Available famotidine 20 mg tablet TAKE 1 tablet at bedtime as needed Once a day active Not Available Not Available No t Available methocarbam ol 750 mg tablet Take 1 tablet twice a day by oral route as needed for 30 days. 11/27 completed Not Available Not Available Not Available doxycycline monohydrate 100 mg capsule TAKE ONE CAPSULE BY MOUTH TWICE DAILY FOR 14 DAYS 01/19 completed Not Available Not Available Not Available cephalexin 500 mg capsule take 1 capsule by MOUTH every 8 hours for 10 days 01/19 completed Not Available Not Available Not Available oseltamivir 75 mg capsule Take 1 capsule twice a day by oral route. active Not Available Not Available No t Available tobramycin 0.3 % eye drops INSTILL 1 DROP INTO AFFECTED EYE(S) BY OPHTHALMI C ROUTE EVERY 4 HOURS for 7 days 03/09 completed Not Available Not Available Not Available Gentle Laxative (bisacodyl) 5 mg tablet,alexandre yed release Take 2 tablets by oral route for 1 day. 07/13 completed Not Available Not Available Not Available prednisone 50 mg tablet TAKE ONE TABLET BY MOUTH DAILY FOR FIVE DAYS 07/14 completed Not Available Not Available Not Available lidocaine 5 % topical patch Apply by topical route for 15 days. active Not Available Not Available No t Available Advair Diskus 500 mcg-50 mcg/dose powder for inhalation Inhale 1 puff as directed twice a day rinse mouth after 06/28 completed Not Available Not Available Not Available gabapentin 300 mg capsule Take 1 capsule by mouth At Night As Needed (insomnia ). 08/10 completed Not Available Not Available Not Available omeprazole 20 mg capsule,del ayed release TAKE 1 capsule by mouth 30 minutes before morning meal 05/31 completed Not Available Not Available Not Available diclofenac sodium 75 mg tablet,alexandre yed release take 1 tablet ORAL route every 12 hours active Not Available Not Available No t Available montelukast 10 mg tablet Take 1 tablet by mouth every night active Not Available Not Available No t Available hydroxyzine HCl 25 mg tablet TAKE 1 TABLET BY MOUTH THREE TIMES A DAY NEEDED FOR ANXIETY 01/19 completed Not Available Not Available Not Available azelastine 137 mcg (0.1 %) nasal spray Keeler 2 spray into both nostrils twice a day as needed active Not Available Not Available No t Available diazepam 10 mg tablet Take 1 tablet by oral route as directed for 1 day, for Preproced ural anxiety. 06/28 completed Not Available Not Available Not Available epinephrine 0.3 mg/0.3 mL injection, auto-inject or USE 1 pen injector intramusc ularly single dose as needed Inject into outer thigh for severe allergic reaction. Call 911 after use. active Not Available Not Available No t Available ibuprofen 600 mg tablet TAKE ONE TABLET BY MOUTH EVERY SIX HOURS NEEDED 01/19 completed Not Available Not Available Not Available polyethylen e glycol 3350 17 gram/dose oral powder DISSOLVE 17 GRAMS(1 CAPFUL) IN EIGHT OUNCES OF LIQUID AND DRINK DAILY active Not Available Not Available No t Available levofloxaci n 500 mg tablet TAKE ONE TABLET BY MOUTH ONCE DAILY FOR SEVEN DAYS 01/19 completed Not Available Not Available Not Available levofloxaci n 750 mg tablet Take 1 tablet every day by oral route. 08/10 completed Not Available Not Available Not Available methylpredn isolone 4 mg tablets in a dose pack TAKE DIRECTED DAILY ON package FOR SIX DAYS active Not Available Not Available No t Available albuterol sulfate HFA 90 mcg/actuati on aerosol inhaler Inhale 2 puffS every four to six hours as needed Use with spacer. May also use 20 minutes prior to exercise if needed. active Not Available Not Available No t Available hydrocortis one 2.5 % topical ointment APPLY A THIN LAYER TO THE AFFECTED AREA(S) BY TOPICAL ROUTE 2 TIMES PER DAY active Not Available Not Available No t Available ondansetron 4 mg disintegrat ing tablet Place 1 tablet twice a day by transling ual route as needed for 3 days. 06/28 completed Not Available Not Available Not Available cefdinir 300 mg capsule Take 1 capsule every 12 hours by oral route for 10 days. 07/03 completed Not Available Not Available Not Available fluticasone propionate 50 mcg/actuati on nasal spray,suspe nsion PLACE 2 sprayS into both nostrils once a daY active Not Available Not Available No t Available amoxicillin 875 mg-potassiu m clavulanate 125 mg tablet Take 1 tablet every 12 hours by oral route. 08/02 completed Not Available Not Available Not Available azithromyci n 500 mg tablet TAKE TWO TABLETS BY MOUTH EVERY DAY 12/26 completed Not Available Not Available Not Available cyclobenzap rine 5 mg tablet Take 1 tablet twice a day by oral route as needed for 30 days. 11/27 completed Not Available Not Available Not Available Allergy Relief (loratadine ) 10 mg tablet Take 1 tablet by mouth once a day active Not Available Not Available No t Available Florastor 250 mg capsule 2 capsules b.i.d. for 10 days 01/27 completed Not Available Not Available Not Available duloxetine 30 mg capsule,del ayed release Take 1 capsule every day by oral route as directed for 30 days. 08/10 completed Not Available Not Available Not Available duloxetine 60 mg capsule,del ayed release Take 1 capsule every day by oral route as directed for 30 days. 08/10 completed Not Available Not Available Not Available chlorhexidi ne gluconate 0.12 % mouthwash place 15 millilite rs in the mouth by mucous membrane route 2 times per day after brushing teeth, swish in mouth for 2 minutes then spit out 01/27 completed Not Available Not Available Not Available Pharbetol 325 mg tablet TAKE TWO TABLETS BY MOUTH EVERY SIX HOURS NEEDED 01/19 completed Not Available Not Available Not Available Advair HFA 230 mcg-21 mcg/actuati on aerosol inhaler 08/10 completed Not Available Not Available Not Available Symbicort 160 mcg-4.5 mcg/actuati on HFA aerosol inhaler INHALE 2 PUFFS TWICE A DAY active Not Available Not Available No t Available Eye Itch Relief 0.025 % (0.035 %) drops INSTILL ONE DROP TO BOTH EYES TWICE A DAY NEEDED active Not Available Not Available No t Available Solu-Medrol (PF) 125 mg/2 mL solution for injection Take 125 mg by injection route. 03/23 completed Not Available Not Available Not Available Kalina Weber [facility] spacer Use 1 device as directed once a day 01/27 completed Not Available Not Available Not Available Myrbetriq 50 mg tablet,exte nded release Take one tablet by mouth once daily active Not Available Not Available No t Available Spiriva Respimat 1.25 mcg/actuati on solution for inhalation INHALE 2 PUFFS BY MOUTH DIRECTED ONCE DAILY active Not Available Not Available No t Available Dupixent 300 mg/2 mL subcutaneou s syringe INJECT 1 SYRINGE SUBCUTANE OUSLY EVERY 2 WEEKS STARTING ON DAY 15 [J45.50] active Not Available Not Available No t Available Intrarosa 6.5 mg vaginal insert Insert 1 vaginal insert(s) every day by vaginal route. active Not Available Not Available No t Available Xhance 93 mcg/actuati on breath activated aerosol USE 1 spray into EACH nostril twice a day active Not Available Not Available No t Available Isadora-Tussin DM 10 mg-100 mg/5 mL oral liquid Take 10 mL( 1 teaspoonf ul) every 4-6 hours by oral route as needed for 5 days. active Not Available Not Available No t Available Trelegy Ellipta 200 mcg-62.5 mcg-25 mcg powder for inhalation inhale ONE PUFF DAILY active Not Available Not Available No t Available Paxlovid 300 mg (150 mg x 2)-100 mg tablets in a dose pack TAKE DIRECTED ON PACKAGE 12/26 completed Not Available Not Available Not Available Vitals Date Recorded Body height Body mass index (BMI) Body weight Body temperature Oxygen saturation Oxygen saturation in Arterial blood by Pulse oximetry Heart rate Respiratory rate Systolic blood pressure Diastolic blood pressure Provider Name and Address Organization Details Last Updated DateTime 4 152.4 cm 27.3 kg/m2 58290.9 3 g 98.4 [degF] 99 % 99 % 84 /min 16 /min 120 mm[Hg] 66 mm[Hg] Gely Spicerbritton [facility] & [place] 09:46:18 Date Recorded Body height Body mass index (BMI) Body weight Body temperature Provider Name and Address Organization Details Last Updated DateTime 06/13/2024 152.4 cm 27.3 kg/m2 97169.93 g 98.5 [degF] Kamillajose rafael Hdzhael [facility] & [place] 06/13/2024 09:22:25 Date Recorded Body height Body mass index (BMI) Body weight Body temperature Oxygen saturation Oxygen saturation in Arterial blood by Pulse oximetry Heart rate Systolic blood pressure Diastolic blood pressure Provider Name and Address Organization Details Last Updated DateTime 5 152.4 cm 26.8 kg/m2 62730.8 7 g 99 [degF] 100 % 100 % 101 /min 140 mm[Hg] 99 mm[Hg] Mellisa Dowd [facility] & [place] 5 12:52:20 Date Recorded Body height Body mass index (BMI) Body weight Body temperature Oxygen saturation Oxygen saturation in Arterial blood by Pulse oximetry Heart rate Respiratory rate Systolic blood pressure Diastolic blood pressure Provider Name and Address Organization Details Last Updated DateTime 5 152.4 cm 26.6 kg/m2 46551.2 8 g 98.1 [degF] 100 % 100 % 96 /min 18 /min 104 mm[Hg] 66 mm[Hg] Gely NICOLE [facility] & [place] 5 11:56:46 Date Recorded Body height Body mass index (BMI) Body weight Body temperature Oxygen saturation Oxygen saturation in Arterial blood by Pulse oximetry Heart rate Respiratory rate Systolic blood pressure Diastolic blood pressure Provider Name and Address Organization Details Last Updated DateTime 5 152.4 cm 26.2 kg/m2 53495.3 8 g 99.9 [degF] 99 % 99 % 120 /min 18 /min 119 mm[Hg] 90 mm[Hg] Gely NICOLE [facility] & [place] 5 14:16:15 Social History Question Answer Notes LastModified by Organizat ion Details LastModified Time Tobacco Smoking Status [facility] [place] 01/26/2022 13:15:05 Do You Have An Advance Directive? No Information n ot available 01/26/2022 Do You Wear A Helmet When Biking? Yes Information not available 01/23/2024 Are You Blind Or Do You Have Difficulty Seeing? No Information n ot available 03/10/2023 What Is Your Level Of Caffeine Consumption? Moderate [email or web address] Information not available 05/31/2023 In The 14 Days Before Symptom Onset, Have You Had Close Contact With A Laboratory-confirm ed COVID-19 While That Case Was Ill? No Information n ot available 01/23/2024 In The 14 Days Before Symptom Onset, Have You Had Close Contact With A Person Who Is Under Investigation For COVID-19 While That Person Was Ill? No Information not available 01/23/2024 Have You Been To An Area Known To Be High Risk For COVID-19? No Information not available 01/23/2024 Are You Deaf Or Do You Have Serious Difficulty Hearing? No Information not available 01/23/2024 What Type Of Diet Are You Following? REGULAR Information n ot available 01/23/2024 Have You Processed Blood Or Body Fluids From An Ebola Virus Disease Patient Without Appropriate PPE? No Information not available 01/23/2024 Do You Reside In Or Have You Traveled To An Area Where Ebola Virus Transmission Is Active? No Information not available 01/23/2024 Have There Been Any Changes To Your Family Or Social Situation? No Information no t available 01/23/2024 What Is The Fluoride Status Of Your Home? Unknown Information not available 01/23/2024 Are There Any Guns Present In Your Home? No Information not available 01/23/2024 Have You Recently Or Are You Planning To Travel To An Area With Zika Virus? No Information not available 01/23/2024 Do You Use Insect Repellent Routinely? Yes Information not available 01/23/2024 In General, Would You Say Your Health Is Good [email or web address] Information not available 03/10/2023 How Would You Describe The Condition Of Your Mouth And Teeth? including False Teeth Or Dentures? Good [email or web address] Information n ot available 03/10/2023 In The Past 7 Days, How Many Servings Of Fruits And Vegetables Did You Typically Eat Each Day? (1 Serving = 1 Cup Of Fresh Vegetables, 1? 2 Cup Of Cooked Vegetables, Or 1 Medium Piece Of Fruit. 1 Cup = Size Of A Baseball.) 1-2 Servings Per Day [email or web address] Information not available 03/10/2023 In The Past 7 Days, How Many Servings Of High Fiber Or Whole Grain Foods Did You Typically Eat Each Day? (1 Serving = 1 Slice Of 100% Whole Wheat Bread, 1 Cup Of Whole-grain Or High-fiber Ydssj-mt-rac Cereal, 1? 2 Cup Of Cooked Cereal Such As Oatmeal, Or 1? 2 Cup Of Cooked Brown Rice Or Whole Wheat Pasta.) 1-2 Servings Per Day [email or web address] Information not available 03/10/2023 In The Past 7 Days, How Many Servings Of Fried Or High-fat Foods Did You Typically Eat Each Day? (Examples Include Fried Chicken, Fried Fish, [place], Irish [place], Potato Chips, [place] Chips, Doughnuts, Creamy Salad Dressings, And Foods Made With Whole Milk, Cream, Cheese, Or Mayonnaise.) 1-2 Servings Per Day [email or web address] Information not available 03/10/2023 In The Past 7 Days, How Many Sugar-sweetened (not Diet) Beverages Did You Typically Consume Each Day 0 Drinks Per Day [email or web address] Information not available 03/10/2023 Each Night, How Many Hours Of Sleep Do You Usually Get? 5-6 Hours [email or web address] Information not available 03/10/2023 Do You Snore Or Has Anyone Told You That You Snore? No [email or web address] Information not available 03/10/2023 In The Past 7 Days, How Often Have You Gila Sleepy During The Daytime? Usually [email or web address] Information not available 03/10/2023 Do You Have Chronic Pain? Yes [email or web address] Information not available 03/10/2023 If Yes, Location Of Pain Lower Back Spine Upper Back Legs And Arms [email or web address] Information not available 03/10/2023 In The Past 7 Days, How Would You Rate Your Pain? Severe Pain(7-9) Information not available 03/10/2023 Are You In A Pain Management Program? No [email or web address] Information not available 03/10/2023 Do You Take Opioids For Your Pain? No Information not available 03/10/2023 How Often Is Stress A Problem For You In Handling Such Things As: Your Health, Your Finances, Your Family And Social Relationships, Your Work? Sometimes [email or web address] Information not available 03/10/2023 How Often Do You Get The Social And Emotional Support You Need: Rarely [email or web address] Information not available 03/10/2023 In The Past 7 Days, Did You Need Help From Others To Take Care Of Things Such As Laundry And Housekeep- Ing, Banking, Shopping, Using The Telephone, Food Preparation, Transportation, Or Taking Your Own Medications? No Information not available 03/10/2023 Do You Live Alone? No [email or web address] Inform ation not available 03/10/2023 Does Your Home Have Any Fall Risks (un-level Floors, Unfastened Rugs, Poor Lighting, Etc)? No Information not available 03/10/2023 Do You Feel Safe At Home? Yes Information not available 01/23/2024 Do You Have A Medical Power Of Field Operations Technician? No Information not available 01/23/2024 What Was The Date Of Your Most Recent Tobacco Screening? 03/01/2024 [email or web address] Information not available 03/01/2024 Do You Have Any Pets? No Information not available 01/23/2024 What Is Your Relationship Status? Single Information not available 01/23/2024 Do You Use Your Seat Belt Or Car Seat Routinely? Yes Information not available 01/23/2024 Do You Have Smoke And Carbon Monoxide Detectors In Your Home? Yes Information not available 01/23/2024 Are You Passively Exposed To Smoke? No Information no t available 01/26/2022 How Much Tobacco Do You Smoke? No [email or web address] Information not available 02/15/2022 Do You Use Sunscreen Routinely? Yes Information not available 01/23/2024 Has Tobacco Cessation Counseling Been Provided? No [email or web address] Information not available 05/31/2023 How Many Years Have You Smoked Tobacco? 0 [email or web address] Information not available 03/10/2023 Do You Have Difficulty Walking Or Climbing Stairs? No Information not available 01/23/2024 Are You Currently In School? No Information not available 01/23/2024 Sex: Unknown Functional Status Question Answer Note LastModified by Organizat ion Details LastModified Time Do you use any illicit or recreational drugs? No Information not available 01/19/2022 Do you or have you ever used any other forms of tobacco or nicotine? No [email or web address] Information not available 05/31/2023 What is your level of alcohol consumption? None Information not available 01/26/2022 Do you or have you ever used smokeless tobacco? Never used smokeless tobacco [email or web address] Information not available 03/10/2023 Are you currently employed? No Information not available 01/23/2024 Do you have transportation difficulties? No Information not available 01/23/2024 Are you able to walk? [email or web address] Information not available 01/23/2024 Do you have difficulty doing errands alone? No Information not available 01/23/2024 Are you able to care for yourself? Yes Information n ot available 01/23/2024 Do you have difficulty dressing or bathing? No Information not available 01/23/2024 What is your exercise level? Occasional [email or web address] Information not available 03/10/2023 Mental Status Question Answer Note LastModified by Organizat ion Details LastModified Time Do you feel stressed (tense, restless, nervous, or anxious, or unable to sleep at night)? [id number] [email or web address] Information not available 03/10/2023 Do you have difficulty concentrating, remembering or making decisions? No Information no t available 01/23/2024 Family History Relationship Description Onset Age of this Age Resolved Age Notes LastModified by Organization Details LastModified Time Mother Kidney disease Not available 12/01 10:31:26 Mother Diabetes mellitus [email or web address] Not available 2024 14:02:48 Sister Diabetes mellitus 1 [email or web address] Not available 2024 14:02:48 Maternal Aunt Malignant tumor of colon [email or web address] Not available 2024 14:02:48 Unspecified Relation Renal failure syndrome Uncle [email or web address] Not available 2024 14:02:48 Unspecified Relation Diabetes mellitus Uncle [email or web address] Not available 2024 14:02:48 Medical History Condition Response Allergies/Hayfever N Heart Problems N Heart Conditions N Ear or Hearing Problems Y Emphysema N Migraines N Thyroid Problems N Glaucoma N Depression N Developmental Delay N Acne N Anemia Y Immune System Disorder N Anesthesia Complications N Heart Attack (CO) N Anxiety Disorder Y Diabetes N Bleeding Disorder N Arthritis Y Hearing Loss N Tuberculosis N Acid Reflux (GERD) N Hyperlipidemia N Cancer N Eczema N Back Problems Y Stroke N Asthma Y Sleep Disorder N GERD/Reflux N Heart Disease N Headaches Y Fibromyalgia N Hypertension N Speech Delay N Kidney Disease N Gynecological History Statement/Question Response Duration of Flow (days) 5 Current Control Method Other Flow Moderate 02/08/2022 Sexually Active? N Obstetrics History GPAL:G 0 P 0 0 0 0 Immunizations Vaccine Type Date Status Note Provider Nam e and Address Organization Details Recorded Time Influenza, split virus, quadrivalent, preservative 7 completed Joleen [place] null, [facility] & [place] 12/21/2022 10:12:03 MMR 8 completed Joleen [place] null, [facility] & [place] 12/21/2022 10:12:03 Influenza, split virus, trivalent, PF 4 completed Joleen [place] null, [facility] & [place] 12/21/2022 10:12:04 Td (adult), 2 Lf tetanus toxoid, preservative free, adsorbed 1 completed Joleen [place] null, [facility] & [place] 12/21/2022 10:12:04 Hep B, adolescent or pediatric 1 completed Joleen [place] null, [facility] & [place] 12/21/2022 10:12:04 Hep B, adolescent or pediatric 1 completed Joleen [place] null, [facility] & [place] 12/21/2022 10:12:04 Hep B, adolescent or pediatric 1 completed Joleen [place] null, [facility] [place] 12/21/2022 10:12:04 Influenza, split virus, quadrivalent, PF 7 completed Joleen [place] null, [facility] [place] 12/21/2022 10:12:04 Influenza, split virus, quadrivalent, PF 0 completed Joleen Patricia null, [facility] [place] 12/21/2022 10:12:04 Influenza, split virus, quadrivalent, PF 7 completed Joleen Patricia null, [facility] [place] 12/21/2022 10:12:04 Influenza, split virus, quadrivalent, PF 2 completed Joleen Patricia null, [facility] [place] 12/21/2022 10:12:15 Past Encounters Encounter ID Performer Location Encounter Start Date Encounter Closed Date Diagnosis/Indication Diagnosis SNOMED-CT Code Diagnosis ICD10 Code Diagnosis Note [id number] James Aparicio MD [email or web address] [address] [place] [address] 01/19/2022 09:10:24 01/19/2022 10:43:56 Adult health examination 272454143 Z00.00 will obtain routine lab work. Patient opts to schedule her mammogram and Pap smear with her OBGYN. Increased frequency of urination 803845013 R35.0 Fatigue 63333861 R53.83 will obtain lab work today. Patient follow-up in a month. Will also refer patient for sleep study [id number] Yolie Marquis MD [facility] [address] [address] 01/26/2022 12:59:32 01/26/2022 13:42:58 Otalgia of right ear 1537954747 H92.01 Otalgia of left ear 1010 027630 H92.02 Pain of temporomandibular joint 71465631 M26.629 advised patient to refrain from chewing gum and eating food that is tough to chew. I suspect this is where her ear pain is coming from as well. She had a normal ear exam today and a normal audiogram. Suggested she may try another brand of otc bite guard. I will see her back in the office as needed. [id number] NEERU DOMINGO [facility] [place] [address] [place] [address] 01/26/2022 13:34:16 01/26/2022 13:36:45 Bilateral earache 997911480 H92.03 [id number] Imer Fernandez Jr, MD [facility] [address] [place] [address] 02/15/2022 10:37:30 02/15/2022 11:40:10 Overactive urinary bladder 453067413 N32.81 patient's symptoms are stable on the Myrbetriq 50 mg and she is to continue. Recurrent urinary tract infection 030446513 N39.0 patient is now off of her trimethopr im suppressio n with some recent lower urinary tract symptoms but her urine today looks very normal and she was reassured the symptoms are not suggestive of infection. She does has no overactive bladder as well discussed continuing on the Myrbetriq. Atrophic vaginitis 10505 000 N95.2 patient to continue on with the intra rows of vaginal inserts. [id number] Milana Bautista APRN [address] [address] 02/16/2022 08:47:48 02/16/2022 12:22:38 Gynecologic examination 73967611 Z01.419 sending off PAPexplain ed to patient will take 5-7 business days [id number] James Aparicio MD [address] [address] 03/18/2022 09:19:18 03/18/2022 10:00:21 Acute urinary tract infection 483666822 N39.0 will treat patient with Cipro. She is instructed to follow-up as needed. [id number] TORRIE GUAN NP [address] [address] 04/02/2022 10:07:37 04/02/2022 11:21:12 Cough 90964087 R05.1 Viral uppe r respiratory tract infection 683982449 J06.9 Patient presented with symptoms of upper respirator y infection. Advised to drink plenty of fluids, run a cool-mist humidifier in room at night, gargle salt water for sore throat, and get plenty of rest. Patient should avoid over-exert ion and reduce exposure to irritants such as smoke, cold, dry air, and dust. Treatment currently involves symptomati c relief. Patient may take acetaminop hen or ibuprofen as directed to reduce fever and body aches. Antihistam ine and decongesta nt usage was discussed and recommenda tions made. Patient understood these instructio ns and will follow up in the office in 10 days to 2 weeks if symptoms not improving. Mild inter mittent asthma 938820942 J45.20 rescue vs maintenanc e inhaler educationu se of inhalers [id number] James Aparicio MD [address] [address] 04/15/2022 09:34:41 04/16/2022 11:51:07 Cough 77647507 R05.9 a I am putting patient on Trelegy. Patient is to let us know if there is improvemen t. [id number] James Aparicio MD [address] [address] 05/04/2022 10:25:49 05/04/2022 12:35:51 Lumbago with sciatica 268596640 M54.40 will start patient on steroids. Will refer patient to specialist ., Physical therapy, attempt to get an MRI. [id number] James Aparicio MD [place] [address] 05/18/2022 12:01:33 05/18/2022 12:43:44 Pain in throat 090693430 R07.0 will treat patient with antibiotic s she has been instructed to go to the emergency department should her symptoms worsen. She does express understand ing. [id number] Ethan Velez MD [facility] is [address] [place] [address] [address] [place] [address] 07/19/2022 10:22:28 07/19/2022 11:42:10 Spinal stenosis of lumbar region 52385604 M99.53 Radicular pain 46126261 M54.10 Myofascial pain 11917721 9 M79.10 Spinal enthesopathy 1031 7009 M46.00 Lumbar radiculopathy 128 253962 M54.16 Spinal дмитрий nosis in cervical region 96648511 M99.51 [id number] Farzad Brice MD [address] [address] 07/02/2022 11:11:21 07/05/2022 15:14:44 Neck pain 68163836 M54.2 acute problem with uncertain cause. Patient has appointmen t with pain management on Tuesday. Recommend keeping this appointmen t. With previous history of neck problems may need thorough evaluation and possible surgical referral.P rescribe burst steroids Muscle spa sm of cervical muscle of neck 4023711298 04 M62.838 . Right side muscle spasm of the trapezius. Recommend heat in stretching exercisesP rescribed muscle relaxer. [id number] James Aparicio MD [address] [address] 07/14/2022 10:08:00 07/14/2022 10:38:48 Increased frequency of urination 600850598 R35.0 urine is clear of evidence of infection. Acute pharyngitis 350317 003 J02.9 patient has been instructed to gargle with salt water and change her toothbrush . She is to take Acetaminop hen as needed for pain. Acute otitis media 97241 03 H65.02 will prescribe eardrops for patient. She has been instructed to follow-up if no improvemen t. Temporoman dibular joint disorder 92262684 M26.609 will refill patient's diclofenac [id number] Farzad Brice MD [address] [address] 07/26/2022 09:49:15 07/26/2022 10:44:29 Dysuria 03898914 R30.0 Persistent symptoms. Ordered dirty urine for GC and chlamydia. Patient does have appointmen t with Urology but before month. Recommend keeping this appointmen t. Diarrhea 66247862 R19.7 Patient having nausea and diarrhea. I explained that very likely is a result of the Augmentin. Explained that this is not uncommon side effects. Recommend taking the rest of the antibiotic which she has to tablets left. With food and prescribed probiotic. Nausea 697442820 R11.0 Probably related to the Augmentin. Given Zofran for p.r.n. use. No vomiting. No severe abdominal pain. [id number] Imer Fernandez Jr, MD [facility] [address] [place] [address] 08/24/2022 08:43:32 08/24/2022 10:21:31 Overactive urinary bladder 425268880 N32.81 patient's symptoms are stable on the Myrbetriq 50 mg and she is to continue. Nocturia 874076126 R35.1 patient with new complaint of nocturia today. She is not having much of a problem during the day. We discussed possible causes. Urethral calibratio n was performed. There was evidence of urethral stenosis present. She tolerated the dilation well and heparin cocktail was placed. Urethral stenosis 736311 003 N35.92 see above Recurrent urinary tract infection 153823838 N39.0 patient is now off of her trimethopr im suppressio n with some recent lower urinary tract symptoms but her urine today looks very normal and she was reassured the symptoms are not suggestive of infection. She does have overactive bladder as well and will continue on the Myrbetriq. [id number] DELTA COSTA PA-C [facility] is [address] [place] [address] [place] [address] 08/30/2022 09:58:12 08/30/2022 10:42:32 Spinal stenosis of lumbar region 66321789 M99.53 Radicular pain 56628061 M54.10 Myofascial pain 21012878 9 M79.10 Spinal enthesopathy 1031 7009 M46.00 M46.03 Lumbar radiculopathy 128 093167 M54.16 Spinal дмитрий nosis in cervical region 72145111 M99.51 [id number] Imer Fernandez Jr, MD [facility] [place] [address] [place] [address] 09/08/2022 08:40:11 09/08/2022 09:26:00 Urinary bladder pain 52791905 R39.82 Mild suprapubic discomfort Nocturia 388643349 R35.1 patient with new complaint of nocturia today. She is not having much of a problem during the day. We discussed possible causes. Urethral calibratio n was performed at her last visit. There was evidence of urethral stenosis present. A 2nd heparin cocktail was placed to day. We discussed fluid restrictio ns at night. She will return in 2 weeks. Recurrent urinary tract infection N39.0 patient is now off of her trimethopr im suppressio n with some recent lower urinary tract symptoms but her urine today looks very normal and she was reassured the symptoms are not suggestive of infection. She does have overactive bladder as well and will continue on the Myrbetriq. [id number] Farzad Brice MD [facility] [address] [address] 09/02/2022 08:30:40 09/02/2022 08:52:37 Conjunctivitis of bilateral eyes caused by bacteria 6999250267 4962806 H10.9 Treat with tobramycin ophthalmic drops Cellulitis of skin 11124 1002 L03.90 moderate cellulitis of the skin around the right eye we will treat with Omnicef. Seek medical care if symptoms become severe or no improvemen t in 48 hours. [id number] Imer Fernandez Jr, MD [facility] [place] [address] [place] [address] 09/22/2022 08:31:47 09/22/2022 09:11:38 Urethritis 92930756 N34.2 Patient with some symptoms of urgency frequency. She is on intra Josie vaginal suppositor ies. Overactive urinary bladder 192441978 N32.81 patient's symptoms are stable on the Myrbetriq 50 mg and she is to continue. Nocturia 284146764 R35.1 patient with nocturia 2-4 times. Previous urethral calibratio n was performed with some resistance noted. She is had 2 heparin instillati ons. She states the nocturia is about the same. She is known to be a very light sleeper and has taken sleep medication in the past. Third instillati on was performed today and patient to try melatonin for sleep. [id number] DELTA COSTA PA-C [facility] is [address] [place] [address] [place] [address] 10/11/2022 13:21:28 10/11/2022 14:02:38 Cervical spondylosis 456079874 M47.812 Spinal дмитрий nosis of lumbar region 71498745 M99.53 Radicular pain 43109001 M54.10 Myofascial pain 07760114 9 M79.10 Spinal enthesopathy 1031 7009 M46.00 M46.03 Lumbar radiculopathy 128 546350 M54.16 Spinal дмитрий nosis in cervical region 19559069 M99.51 [id number] Etahn Velez MD [facility] is [address] [place] [address] [place] [address] 11/29/2022 10:46:50 11/29/2022 13:36:19 Spinal stenosis of lumbar region 10302561 M99.53 Radicular pain 90529151 M54.10 Myofascial pain 31016442 9 M79.10 Spinal enthesopathy 1031 7009 M46.00 M46.03 Lumbar radiculopathy 128 311893 M54.16 Spinal дмитрий nosis in cervical region 01650739 M99.51 Cervical spondylosis 387 919458 M47.812 [id number] James Aparicio MD [facility] [address] [facility] [place] [address] 12/28/2022 10:46:58 12/28/2022 11:49:43 Anxiety 95733411 F41.9 Insomnia 880651355 G47.0 0 patient is in the process of getting sleep studies. Vitamin D deficiency 347 49338 E55.9 Diabetes m ellitus screening 790001170 Z13.1 Will obtain lab work today. Thyroid di sorder screening 494308707 Z13.29 Adult heal th examination 486052409 Z00.00 will obtain routine lab work. Patient opts to schedule her mammogram and Pap smear with her OBGYN. [id number] DELTA COSTA PA-C [facility] is [address] [place] [address] 12/27/2022 08:47:35 12/27/2022 09:16:45 Spinal stenosis of lumbar region 88933617 M99.53 M48.061 Radicular pain 58843767 M54.10 Myofascial pain 92181823 9 M79.10 Spinal enthesopathy 1031 7009 M46.00 M46.03 Lumbar radiculopathy 128 346273 M54.16 Spinal дмитрий nosis in cervical region 21954544 M99.51 Cervical spondylosis 387 011684 M47.812 [id number] Ethan Velez MD [facility] [address] [place] [address] 01/27/2023 09:28:07 01/27/2023 09:28:42 Spinal stenosis of lumbar region 94711423 M99.53 M48.061 Radicular pain 76867123 M54.10 Myofascial pain 16889764 9 M79.10 Spinal enthesopathy 1031 7009 M46.00 M46.03 Lumbar radiculopathy 128 717168 M54.16 Spinal дмитрий nosis in cervical region 59765096 M99.51 Cervical spondylosis 387 164327 M47.812 Thoracic back pain 06317 8004 M54.6 [id number] Ethan Velez MD [facility] is [address] [place] [address] [place] [address] 03/03/2023 10:20:55 03/03/2023 11:13:40 Spinal stenosis of lumbar region 68511048 M99.53 M48.061 Radicular pain 38058081 M54.10 Myofascial pain 38977207 9 M79.10 Spinal enthesopathy 1031 7009 M46.00 M46.03 Lumbar radiculopathy 128 679584 M54.16 Spinal дмитрий nosis in cervical region 79944322 M99.51 Cervical spondylosis 387 670609 M47.812 Thoracic back pain 28492 8004 M54.6 Spinal ent hesopathy of cervicothoracic region 9224211206 86365 M46.03 [id number] Imer Fernandez Jr, MD [facility] [address] [address] 03/18/2023 09:06:43 03/18/2023 09:31:08 Recurrent urinary tract infection 436413533 N39.0 Patient with history of urinary tract infections . She is been on trimethopr im suppressio n in the past but has not been on it for several months as we have decided to discontinu e it. We will culture her urine today and she was placed on empiric cefdinir. For symptoms do not improve she is to return for urethral dilation and or heparin instillati on. Urethritis 33589271 N34. 2 Patient with some symptoms of urgency frequency. She is on intra Josie vaginal suppositor ies. Overactive urinary bladder 289347346 N32.81 patient's symptoms are stable on the Myrbetriq 50 mg and she is to continue. Nocturia 207095324 R35.1 nocturia has been increased as well recently. Over this will improve with the antibiotic as well. [id number] Sharon Acevedo NP [facility] [address] [place] [address],[place] [address] 03/09/2023 08:55:20 03/09/2023 10:17:59 Dysphagia 80000328 R13.10 6 year history of episodes dysphagia with both solids and liquids, occasional regurgitat ion. Recent worsening symptoms. History of asthma and allergies. Recommend EGD possible dilatation based on findings rule out eosinophil ic esophagiti s, Schatzki's ring, stricture, other. Recommend esophagram to further evaluate. Pt is scheduled for EGD 04/13 @ 7:30 AM Gastro-eso phageal reflux disease with esophagitis 091336484 K21.00 Continues omeprazole 40 mg and famotidine p.r.n. with occasional breakthrou gh symptoms. I have recommende d continued use of medication as prescribed as well as continued reflux precaution s. Plan for EGD to evaluate for esophagiti s, hiatal hernia, other. Nausea 467485024 R11.0 Occasional episodes of nausea. Plan for EGD to evaluate for gastritis, PUD, H pylori, other. [id number] James Aparicio MD [address] [place] [address] 03/16/2023 08:27:55 03/16/2023 09:10:13 Hyperlipidemia 26411219 E78.5 will check labs today. Insomnia 216753529 G47.0 0 Continues to suffer from insomnia. She is currently seeing the behavioral health specialist . Gastro-eso phageal reflux disease with esophagitis 057371041 K21.00 Stable [id number] Ethan Velez MD [facility] [address] [place] [address] [place] [address] 03/28/2023 10:12:25 03/28/2023 10:46:21 Spinal stenosis of lumbar region 43924406 M99.53 M48.061 Radicular pain 91122796 M54.10 Myofascial pain 80627998 9 M79.10 Spinal enthesopathy 1031 7009 M46.00 M46.03 Lumbar radiculopathy 128 747876 M54.16 Spinal дмитрий nosis in cervical region 06851882 M99.51 Cervical spondylosis 387 731307 M47.812 Thoracic back pain 39822 8004 M54.6 Spinal ent hesopathy of cervicothoracic region 8935940837 71676 M46.03 [id number] Imer Fernandez Jr, MD [facility] [place] [address] [facility] [place] [address] 05/11/2023 10:20:41 05/11/2023 11:17:01 Increased frequency of urination 679397906 R35.0 Patient with flare-up of irritable voiding symptoms. Her urinalysis is unremarkab le other than some microscopi c hematuria and she is on her menstrual period. She has continued on her intra Josie suppositor ies as well as Motegrity and states that she does avoid caffeine. Heparin instillati on was performed today we will see her back in 2 weeks in follow-up. Recurrent urinary tract infection 213300400 N39.0 Patient with history of urinary tract infections . She is been on trimethopr im suppressio n in the past but has not been on it for several months as we have decided to discontinu e it. urine today shows no evidence of infection. Urethritis 55613054 N34. 2 Patient with some symptoms of urgency frequency. She is on intra Josie vaginal suppositor ies. Nocturia 327769570 R35.1 nocturia has been increased as well recently. hopefully this will improve with the heparin instillati on. Follow up 2 weeks [id number] James Aparicio MD [address] [place] [address] 04/06/2023 09:34:13 04/06/2023 10:06:27 Chronic pain syndrome 842170192 G89.4 Patient is going to continue with physical therapy. Will treat patient acutely with tramadol for break through pain. She has been encouraged to continue to take diclofenac . Increased frequency of urination 281844920 R35.0 patient is scheduled to see Urology on Tuesday the 15 of April. I have encouraged her to keep that appointmen t. [id number] Ethan Velez MD [facility] [address] [place] [address] [place] [address] 05/16/2023 12:53:32 05/16/2023 14:03:09 Spinal stenosis of lumbar region 42728745 M99.53 M48.061 Radicular pain 67400681 M54.10 Myofascial pain 74015551 9 M79.10 Spinal enthesopathy 1031 7009 M46.00 M46.03 Lumbar radiculopathy 128 122418 M54.16 Spinal дмитрий nosis in cervical region 23845975 M99.51 Cervical spondylosis 387 732820 M47.812 Thoracic back pain 38255 8004 M54.6 Spinal ent hesopathy of cervicothoracic region 7306002717 22948 M46.03 [id number] James Aparicio MD [facility] [address] [place] [address] 05/05/2023 12:13:30 05/05/2023 12:50:33 Acute sinusitis 70143991 J01.90 will treat patient with antibiotic s and steroids. She has a prior appointmen t with ENT. She has been advised to keep appointmen t. [id number] Imer Fernandez Jr, MD [facility] [address] [address] 05/25/2023 10:40:05 05/25/2023 11:21:59 Increased frequency of urination 025728360 R35.0 Patient with flare-up of irritable voiding symptoms. Her urinalysis is unremarkab le. She continues with the daytime frequency and nocturia several times despite 1st bladder instillati on last week. Second instillati on was performed today and she will return in 2 weeks. We discussed if her symptoms continue that other treatment options would include hydrodiste ntion for possible interstiti al cystitis or referral for InterStim placement. she is to continue the myrbetriq. Recurrent urinary tract infection 770490674 N39.0 Patient with history of urinary tract infections . She is been on trimethopr im suppressio n in the past but has not been on it for several months as we have decided to discontinu e it. urine today shows no evidence of infection. Urethritis 45534035 N34. 2 Patient with some symptoms of urgency frequency. She is on intra Josie vaginal suppositor ies. [id number] Sharon Aceveod NP [facility] [address] [address] 05/18/2023 10:36:39 05/18/2023 11:53:06 Dysphagia 64722991 R13.10 EGD 05/13/23 appeared normal with empiric dilatation performed up to 20 mm using dilating balloon given complaints of dysphagia. Pathology currently pending. Normal esophagram 03/17/2023 . Only occasional episodes at this time. Gastro-eso phageal reflux disease with esophagitis 092422360 K21.00 Continues omeprazole 40 mg and famotidine p.r.n. with controlled symptoms. Nausea 791975597 R11.0 Continued frequent episodes of nausea. No etiology identified on EGD 05/13/2023 . Recommend labs today. Recommend US gallbladde r to r/o biliary etiology. Hematochezia 903766880 K 92.1 Single episode 1-2 weeks ago which she describes as moderate amount. Plan for CBC today. Recommend colonoscop y to rule out internal hemorrhoid s, polyps, other. Constipation 28276612 K5 9.00 Occasional constipati on recommend increased dietary fiber as well as use of MiraLax p.r.n. for treatment. Colonoscopy planned 7039 40851 Z76.89 [id number] Yolie Marquis MD [facility] [facility], [address] [place] [address] 05/31/2023 12:43:11 05/31/2023 13:30:39 Allergic rhinitis 07562103 J30.9 Posterior rhinorrhea 758 29316 R09.82 Asthma 120580532 J45.90 9 [id number] Farzad Brice MD [facility] [address] [place] [address] 06/03/2023 08:33:43 06/03/2023 09:05:18 Respiratory tract congestion and cough 262356100 R05.1 testing is all negative. Exposure t o streptococcal pharyngitis 6889975578 105 Z20.818 daughter was diagnosed on Tuesday was strep. Patient's symptoms started yesterday. Despite testing being negative proceed with treatment with symptoms Recurrent acute sinusitis [id number] J01.91 Patient has symptoms consistent with sinusitis. We will proceed with cefdinir [id number] Ethan Velez MD [facility] is [address] [place] [address] [place] [address] 07/04/2023 11:42:04 07/04/2023 12:15:11 Spinal stenosis of lumbar region 67321187 M99.53 M48.061 Radicular pain 83174205 M54.10 Myofascial pain 47131440 9 M79.10 Spinal enthesopathy 1031 7009 M46.00 M46.03 Lumbar radiculopathy 128 422216 M54.16 Spinal дмитрий nosis in cervical region 25315790 M99.51 Cervical spondylosis 387 853035 M47.812 Thoracic back pain 57961 8004 M54.6 Spinal ent hesopathy of cervicothoracic region 0342521033 14924 M46.03 [id number] Imer Fernandez Jr, MD [facility] [address] [address] 07/15/2023 09:55:56 07/15/2023 11:12:32 Mixed urinary incontinence 626218767 N39.46 Pt to continue Myrbetriq and Kegel's. Dysuria 18351150 R30.0 pt with persistent dysuria and LUTS. She has not responded to meds or instillati ons. Discussed hydrodiste nsion with pt and will schedule under general anesthesia . Urethritis [id number] N34. 2 Patient with some symptoms of urgency frequency. She is on intra Josie vaginal suppositor ies. [id number] James Aparicio MD [place] [address] [address] [place] [address] 07/14/2023 11:18:42 07/14/2023 11:40:13 Acute urinary tract infection 938835653 N39.0 will treat patient with Levaquin. She is instructed to follow-up as needed. She tells me that she has an appointmen t with her urologist in the morning [id number] James Aparicio MD [address] [place] [address] 08/11/2023 09:57:19 08/11/2023 10:21:49 Asthma 155888814 J45.909 We have had extensive discussion s regarding asthma treatment. Will give patient a sample pack of breztri to use instead of wixela. I will also send in a prescripti on for some steroids as well as a Z-William. Patient has been advised to call her pulmonolog ist and see if she can get an earlier appointmen t. [id number] James Aparicio MD [facility] [address] [place] [address] 08/22/2023 09:28:41 08/22/2023 10:08:21 Asthma 967801022 J45.909 patient to follow-up with pulmonolog y as discussed. We have pretty much exhausted our options in primary care. [id number] Ethan Velez MD [facility] [address] [place] [address] 08/29/2023 12:22:56 08/29/2023 13:43:44 Spinal stenosis of lumbar region 32261550 M99.53 M48.061 Radicular pain 29574070 M54.10 Myofascial pain 15857221 9 M79.10 Spinal enthesopathy 1031 7009 M46.00 M46.03 Lumbar radiculopathy 128 150323 M54.16 Spinal дмитрий nosis in cervical region 67308306 M99.51 Cervical spondylosis 387 218214 M47.812 Thoracic back pain 27470 8004 M54.6 Spinal ent hesopathy of cervicothoracic region 6368932868 85843 M46.03 [id number] James Aparicio MD [facility] [address] [facility] [place] [address] 09/01/2023 11:41:41 09/01/2023 12:08:40 Dysuria 58188128 R30.0 [id number] Ethan Velez MD [facility] [address] [place] [address] [place] [address] 10/17/2023 10:00:39 10/17/2023 10:28:38 Spinal stenosis of lumbar region 50459521 M99.53 M48.061 Radicular pain 23275684 M54.10 Myofascial pain 85724430 9 M79.10 Spinal enthesopathy 1031 7009 M46.00 M46.03 Lumbar radiculopathy 128 628448 M54.16 Spinal дмитрий nosis in cervical region 92634005 M99.51 Cervical spondylosis 387 693872 M47.812 Thoracic back pain 58121 8004 M54.6 Spinal ent hesopathy of cervicothoracic region 8473499946 24768 M46.03 [id number] Ethan Velez MD [facility] [address] [place] [address] 11/28/2023 13:35:24 11/28/2023 14:17:50 Spinal stenosis of lumbar region 93722301 M99.53 M48.061 Radicular pain 66138765 M54.10 Myofascial pain 83531862 9 M79.10 Spinal enthesopathy 1031 7009 M46.00 M46.03 Lumbar radiculopathy 128 315402 M54.16 Spinal дмитрий nosis in cervical region 04434485 M99.51 Cervical spondylosis 387 368025 M47.812 Thoracic back pain 17851 8004 M54.6 Spinal ent hesopathy of cervicothoracic region 6413901608 78674 M46.03 [id number] Yolie Marquis MD [facility] [place] [id number] [address] [facility], [address] [place] [address] 12/07/2023

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
[2024-09-13] MEDS: METHACHOLINE CHLORIDE 65MG/18ML KIT 64 MG IH (15:48)
[2024-09-13] MEDS: ALBUTEROL 0.083% 2.5 MG/3 ML NEB IH ×2 (15:49)
== END 2024-09-13 23:59 | disposition home or self-care (01) ==
LOC: RT 14:22
PROVIDERS: PCP Emergency Medicine; Visit Provider Internal Medicine Pulmonary Disease
DX: R06.02 Shortness of breath (principal)
CPT/HCPCS: 94070; 95070; J7674

== ENCOUNTER 2025-01-04 10:42 | Outpatient (CLI) | payer MEDICARE, MEDICAID, SELFPAY ==
--- OUTSIDE RECORDS SUMMARY | 2025-01-04 10:46 | XMS_ITS | Clinical Summary ---
Author Organization [facility] Address [address] [place] [address] Care Team Providers Care Engine Lathe Set Up Operator Tool Name Role Phone James Duff MD Primary Care Provider [phone] Allergies Active Allergy Reactions Criticality Noted Date Comments Nitrofurantoin Macrocrystal GI Intolerance Medium 07/11/2017 Molds & Smuts Cough Low 07/11/2017 Pistachio Nut (Diagnostic) Unknown (See Comments) Low 07/15/2017 Pt doesn't know, said it showed up on an allergy test Shrimp Flavor Agent (Non-Screening) Unknown (See Comments) Low 07/15/2017 Pt doesn't know, said it showed up on an allergy test Medications montelukast (SINGULAIR) 10 MG tablet Take 1 tablet by mouth Every Night. Active loratadine (CLARITIN) 10 MG tablet Take 1 tablet by mouth Daily. Active albuterol (PROVENTIL HFA;VENTOLIN HFA) 108 (90 Base) MCG/ACT inhaler Inhale 2 puffs Every 4 (Four) Hours As Needed for Wheezing. Active azelastine (ASTELIN) 0.1 % nasal spray 2 sprays into the nostril(s) as directed by provider 2 (Two) Times a Day. Use in each nostril as directed Active cetirizine (zyrTEC) 10 MG tablet Take 1 tablet by mouth Daily. Active fluticasone (FLONASE) 50 MCG/ACT nasal spray 8 Active hydrOXYzine (ATARAX) 25 MG tablet Take 1 tablet by mouth 3 (Three) Times a Day As Needed for Anxiety. 20 tablet 2 Active Additional Information Patient not taking.Reported on 12/14/2022 cyclobenzaprine (FLEXERIL) 10 MG tablet Take 1 tablet by mouth 3 (Three) Times a Day As Needed for Muscle Spasms. 15 tablet 2 Active famotidine (PEPCID) 20 MG tablet TAKE ONE TABLET BY MOUTH EVERY TWELVE HOURS FOR 10 DAYS 3 Active Allergy Relief 180 MG tablet Take 1 tablet by mouth Daily. 3 Active Fluticasone-Salm eterol (ADVAIR/WIXELA) 500-50 MCG/ACT DISKUS Inhale 1 puff as directed twice a day rinse mouth after 3 Active Myrbetriq 50 MG tablet sustained-releas e 24 hour 24 hr tablet Take 50 mg by mouth Daily. 3 Active diclofenac (VOLTAREN) 75 MG EC tablet Take 1 tablet twice a day by oral route. 3 Active gabapentin (NEURONTIN) 300 MG capsuleIndicatio ns:Primary insomnia Take 1 capsule by mouth At Night As Needed (insomnia). 30 capsule 3 3 Active omeprazole (priLOSEC) 40 MG capsuleIndicatio ns:Gastroesophag eal reflux disease, unspecified whether esophagitis present Take 1 capsule by mouth 2 (Two) Times a Day. 60 capsule 6 4 Active Active Problems Problem Noted Date Diagnosed Date Mixed urge and stress incontinence 10/24/2019 Annual PROCUREMENT DIRECTOR exam 10/14/2019 Overview (10/30/2019): SCREENING TESTS Year 2017 2018 2019 2019 2020 2021 2022 2023 2024 2025 2026 2027 2028 2029 2030 2031 2032 2033 2034 2035 Age PAP 9-ASCUS 3 12 - 6 HPV high risk 9 - + non 16/18 3 - + non 16/18 YAEL [Birads] OMAIRA (5 year) Jaiden Allred (lifetime) Colonoscopy DEXA [T-score] Frax [hip/any] Lipids [LDL / HDL / TG] Vitamin D TSH Enter the month test was performed. If month not known, enter X' Black numbers = normal results Red numbers = abnormal results Black X = patient reported normal Red X - patient reported abnormal Referred by: Dr. Melo patient Profession: Other info: Allergic asthma 05/02/2012 Encounters Date Type Department Care Team Description 11/28/2024 Refill [facility] CARDIOLOGY [address] [place], [place] [address]WAESPE-REFILL from Last 3 Months Immunizations Immunization Administration Dates Next Due Flu Vaccine Quad PF >36MO 03/03/2017 Social History Tobacco Use Types Packs/Day Years Used Date Smoking Tobacco: Never Passive Smoke Exposure: Never Smokeless Tobacco: Never Tobacco Cessation:Counseling Given: No Alcohol Use Standard Drinks/Week Comments No 0 (1 standard drink = 0.6 oz pur e alcohol) Abuse Screen Answer Date Recorded Unsafe at Home or Work/School Not on file Feels Threatened by Someone? Not on file 12/2022 Does Anyone Keep You from Co ntacting Others or Doint Things Outside the Home? Not on file 02/07/2023 Physical Sign of Abuse Present Not on file 1 Housing Stability Answer Date Recorded Current Living Arrangements Not on file 12/2022 Potentially Unsafe Housing Conditions Not on saurabh e 02/07/2023 Family and Community Support Answer Tyler e Recorded Help with Day-to-Day Activities Not on file 02/07/2023 Lonely or Isolated Not on file 02/07/2023 Employment Answer Date Recorded Do you want help finding or keeping work or a isac b? Not on file 02/07/2023 Disabilities Answer Date Recorded Concentrating, Remembering, or Making Decisions Difficulty Not on file 02/07/2023 Doing Errands Independently Difficulty Not on fi le 02/07/2023 Education Answer Date Recorded Help with school or training? Not on file Preferred Language Not on file 02/07/2023 Comments No Sex and Gender Information Value Date Recorded Sex Assigned at Not on file Legal Sex Female 11:45 AM EDT Gender Identity Not on file Sexual Orientation Not on file Last Filed Vital Signs Vital Sign Reading Time Taken Comments Blood Pressure 112/70 12/14/2022 11:09 AM EDT Pulse 65 12/14/2022 11:09 AM EDT Temperature 36.7 C (98.1 F) 06/21/2021 12:45 PM EST Respiratory Rate 18 06/21/2021 12:45 PM EST Oxygen Saturation 97% 12/14/2022 11:09 AM EDT Inhaled Oxygen Concentration - - Weight 59.9 kg (132 lb) 12/14/2022 11:09 AM EDT Height 152.4 cm (5') 12/14/2022 11:09 AM EDT Body Mass Index 25.78 12/14/2022 11:09 AM EDT Plan of Treatment Health Maintenance Due Date Last Done Comments Pneumococcal Vaccine 0-49 (1 of 2 - PCV) 2004 TDAP/TD VACCINES (2 - Tdap) 07/15/2010 07/15/2000 ANNUAL WELLNESS VISIT 01/11/2017 HEPATITIS C SCREENING 01/11/2017 Annual Gynecologic Pelvic an d Breast Exam 10/24/2020 10/24/2019 PAP SMEAR 10/23/2022 10/24/2019, 04/01, 01/11/2017 COVID-19 Vaccine (2023-2 5 season) 2024 INFLUENZA VACCINE 01/30/2025 02/22/2022, , 03/03/2017, Additional history exists Procedures Procedure Name Priority Date/Time Associated Diagnosis Comments PAP IG, RFX HPV ASCU (P&C LAB) Routine 10/24/2019 Annual PROCUREMENT DIRECTOR exam from Last 3 Months or Most Recently Relevant to Health Maintenance Results * Pap IG, Rfx HPV ASCU (10/24/2019) Specimen from cervix or vagina / Unknown us Billy Foy MD PATHOLOGY/CYTOLOGY ORDERAB LES Final Result [facility]
[address] [place] [address], [place] [phone] from Last 3 Months or Most Recently Relevant to Health Maintenance Insurance [employer] UHC MEDICARE ADVANTAGE [facility] HMO NON PAR Care Teams Engine Lathe Set Up Operator Tool Relationship Specialty Start Date End Date James Duff MD PCP - General Emergency Medicine 10/24/19
--- OUTSIDE RECORDS SUMMARY | 2025-01-04 10:46 | XMS_ITS | Encounter Summary ---
Author Organization [facility] Address [address] [place] [address] Care Team Providers Care Taxation Consultant Name Role Phone James Duff MD Primary Care Provider [phone] Reason for Visit * Reason Comments Med Refill Encounter Details Date Type Department Care Team (Late st Contact Info) Description 11/22/2023 Refill [facility] CARDIOLOGY [address] [place] [address] Sarahy Recio MD [address] [place] [address] Med Refill Social History Tobacco Use Types Packs/Day Years Used Date Smoking Tobacco: Never Passive Smoke Exposure: Never Smokeless Tobacco: Never Alcohol Use Standard Drinks/Week Comments No 0 [...] on file Sexual Orientation Not on file documented as of this encounter Plan of Treatment Not on file documented as of this encounter Visit Diagnoses Diagnosis Gastroesophageal reflux disease, unspecified whether esophagitis present documented in this encounter Care Teams Taxation Consultant Relationship Specialty Start Date End Date James Duff MD PCP - General Emergency Medicine 10/24/19 documented as of this encounter
--- OUTSIDE RECORDS SUMMARY | 2025-01-04 10:46 | XMS_ITS | Encounter Summary ---
Author Organization [facility] Address [address] [place] [address] Care Team Providers Care Insole Tacker Name Role Phone James Duff MD Primary Care Provider [phone] Reason for Visit * Reason Onset Date Comments 11/28/2024 Encounter Details Date Type Department Care Team (Late st Contact Info) Description 11/28/2024 Refill [facility] CARDIOLOGY [address] [place] [address] Sarahy Recio MD [address] [place] [address] Social History Tobacco Use Types Packs/Day Years [...] on file documented as of this encounter Miscellaneous Notes * Telephone Encounter - Ian Stroud RegSched Rep - 11/28/2024 3:34 PM EDT Caller: Sharla Bañuelos Relationship: Self Best call back number: [phone] Requested Prescriptions: Requested Prescriptions Pending Prescriptions Disp Refills omeprazole (priLOSEC) 40 MG capsule 60 capsule 6 Sig: Take 1 capsule by mouth 2 (Two) Times a Day. Pharmacy where request should be sent: [address] [phone] [facility] [phone] Last office visit with prescribing clinician: 12/14/2022 Last telemedicine visit with prescribing clinician: Visit date not found Next office visit with prescribing clinician: Visit date not found Does the patient have less than a 3 day supply: [x] Yes [] No Would you like a call back once the refill request has been completed: [x] Yes [] No If the office needs to give you a call back, can they leave a voicemail: [x] Yes [] No Shayla Mejia 11/28/24 15:36 EDT documented in this encounter Plan of Treatment Not on file documented as of this encounter Visit Diagnoses Diagnosis Gastroesophageal reflux disease, unspecified whether esophagitis present documented in this encounter Care Teams Insole Tacker Relationship Specialty Start Date End Date James Duff MD PCP - General Emergency Medicine 10/24/19 documented as of this encounter
--- OUTSIDE RECORDS SUMMARY | 2025-01-04 10:46 | XMS_ITS | Clinical Summary ---
Author Organization [facility] Address [address] [place] [address] Care Team Providers Care Flight Communications Officer Name Role Phone Cinthya Salcedo APRN Primary Care Provider [phone] Immunizations Immunization Administration Dates Next Due Influenza, seasonal, injectable, preservative fr ee 05/24/2013 Social History Tobacco Use Types Packs/Day Years Used Date Smoking Tobacco: Never Alcohol Use Standard Drinks/Week Comments No 0 (1 standard drink = 0.6 oz pur e alcohol) Comments Unknown Sex and Gender Information Value Date Recorded Sex Assigned at Not on file Legal Sex Female 8:41 PM EDT Gender Identity Not on file Sexual Orientation Not on file Last Filed Vital Signs Vital Sign Reading Time Taken Comments Blood Pressure 118/76 08/07/2018 9:01 AM EDT Pulse 89 07/05/2018 9:15 AM EST Temperature - - Respiratory Rate 16 07/05/2018 9:15 AM EST Oxygen Saturation - - Inhaled Oxygen Concentration - - Weight 56 kg (123 lb 7.3 oz) 08/07/2018 9:01 AM EDT Height 149.9 cm (4' 11 ) 08/07/2018 9:01 AM EDT Body Mass Index 24.94 08/07/2018 9:01 AM EDT Plan of Treatment Not on file Care Teams Flight Communications Officer Relationship Specialty Start Date End Date Cinthya Salcedo APRN [address] [place] [address] PCP - General 09/12/20
--- NOTE | 2025-01-04 11:00 | CA_ITS ---
APPROVED REPORT EXAM: Comprehensive 2D, Doppler, and color-flow Echocardiogram Environmental Research Scientist: Vivian Robertson RVT Ht: 5 ft 2 in Wt: 138lbs BSA: 1.63 BP: 133/84 mmHg Indications: SHORTNESS OF BREATH,FATIGUE 2D Dimensions LA Volume 24.30 mL LA Volume Index 14.91 mL/m2 (M/F) 16-34 M-Mode Dimensions RVDd 2.32 cm (0.9-2.6) LA Diam 2.54 cm (1.9-4.0) LVDd 4.43 cm (3.5-5.7) LVDs 3.22 cm (3.5-5.7) IVSd 0.87 cm (0.6-1.1) PWd 0.40 cm (0.6-1.1) EF (Teich) 53.30% FS 27.30% EDV (Teich) 89.10 mL TAPSE 2.26 (<1.7) ESV (Teich) 41.60 mL LV Diastology E Decel Time 150 (160-240 msec) E/A Ratio 0.9 Aortic Valve YURI Index 1.76 cm2/m2 AoV Peak Jake. 101.0 (50-130 cm/s) AO Peak GR. 4.10 mmHg AO Mean GR. 2.20 (<5 mmHg) AO VTI 18.9 (18-25 cm) YURI (VTI) 2.94 (2.5-4.5 cm2) Mitral Valve MV E Max Jake. 95.0 (40-130 cm/s) MV A Velocity 105.0 (40-130 cm/s) E/A Ratio 0.91 MV PHT 44.0 ms Pulmonary Valve PV Peak Velocity 63.0 (50-150 cm/s) Left Ventricle The left ventricle is normal size. Left ventricular systolic function is normal. The left ventricular ejection fraction is within the normal range. There is normal left ventricular wall thickness. There is normal LV segmental wall motion. The left ventricular diastolic function is normal. LVEF is 55% Right Ventricle The right ventricle is normal size. The right ventricular systolic function is normal. Atria The left atrium size is normal. The right atrium size is normal. There is no color Doppler evidence of interatrial shunt. Aortic Valve The aortic valve opens well. There is no hemodynamically significant aortic valvular stenosis. No aortic regurgitation is present. Mitral Valve The mitral valve is normal in structure. No evidence of mitral valve stenosis. Trace mitral regurgitation is present. Tricuspid Valve The tricuspid valve leaflets are thin and pliable. Trace tricuspid regurgitation. There is insufficient TR jet to estimate RVSP. Pulmonic Valve The pulmonary valve is grossly normal in structure. Trace pulmonic valve regurgitation is present. Great Vessels The aortic root is normal in size. IVC is normal in size and collapses >50% with inspiration. Pericardium There is no pericardial effusion. Other Information Study Quality: Fair Conclusion Normal biventricular systolic function. No significant valvular stenosis or regurgitation. Electronically signed by : Patsy Choe MD 01/04/2025 23:18:04
[2025-01-04 11:34] VITALS: BMI 27.1
[2025-01-04 12:14] LABS: Potassium 3.7 mmoL/L (3.5-5.1)
[2025-01-04] MEDS: IVABRADINE HCL 7.5MG TABLET PO (12:14)
[2025-01-04] MEDS: METOPROLOL TARTRATE 50MG TABLET PO ×2 (12:15→13:10)
[2025-01-04 12:17] LABS: Blood Urea Nitrogen 16 mg/dl (7-17); Calcium 8.9 mg/dl (8.4-10.2); Carbon Dioxide 24 mmol/L (22.0-30.0); Creatinine Clearance Estimated 107 mL/min (50-200); Creatinine,Serum 0.70 mg/dl (0.52-1.04); Estimated Glomerular Filt Rate 93 ml/min (>60); GFR (African American) 113 ML/MIN (>60); Glucose 86 mg/dl (74-100)
[2025-01-04 12:45] LABS: HCG Qualitative, Serum Negative (Negative)
--- NOTE | 2025-01-04 13:00 | CT_ITS ---
APPROVED REPORT Abalone Fisherman: CLINICAL INDICATION Chest Pain TECHNIQUE Image Acquisition: A 128 slice MDCT scanner ([employer]) was used for data acquisition. A noncontrast coronary calcium scan was performed. A CT attenuation threshold of 130 Hounsfield units (HU) was used for the detection of calcium in contiguous voxels of 1 sq mm in area to be counted as individual lesions. Bolus tracking in the ascending aorta with a threshold of 180 HU was performed. Immediately afterwards, ECG synchronized cardiac CT was then performed from the cardiac base to apex using retrospective gating with ECG tube current modulation. A total of 85 mL of Isovue 370 mg/mL contrast medium was administered at 5 mL/sec followed by a saline flush using a biphasic injection protocol. A tube voltage of 120 KVp was used. The patient received the following medications prior to the cardiac CT. 150 mg of oral metoprolol 15 mg of oral ivabradine The average heart rate at the time of acquisition was 53 bpm and regular. Image Reconstruction Transaxial images were reconstructed at 0.67 mm slide thickness. Data was reviewed interactively on an advanced workstation capable of 2 and 3-dimensional displays in all conventional reconstruction formats, including multiplanar reformations, maximum intensity projections, curved multiplanar reformations, and volume rendered reconstructions. When applicable, selected routine images describing the relevant coronary anatomy and pathology were saved and sent to PACS. Complications None Technical Quality Overall image quality was good. Coronary artery opacification was adequate. Total DLP (Dose-Length Product) is 1126.2 mGy-cm. The reported value represents the total of one or more individual components during the CT acquisition of this date and at this time, and as such, the same value may appear in more than one CT report depending on the interpreting/reporting physicians. COMPARISON None FINDINGS CT Coronary Calcium Scoring LMA (Left Main Artery) = 0 LAD (Left Anterior Descending) = 0 LCX (Left Coronary Circumflex) = 0 RCA (Right Coronary Artery) = 0 Total Calcium Score = 0 using the AJ-130 method. The interpretation of the calcium heart score is based on the following continuum*: 0 = no calcified plaque detected (risk of coronary artery disease is very low ??? less than 5%) 1-10 = calcium detected in extremely minimal levels (risk of coronary diseases is still low ??? less than 10%) 11-100 = mild levels of plaque detected with certainty (mild or minimal narrowing of heart arteries is likely) 101-400 = definite,at least moderate levels of plaque detected (relatively high risk of a heart attack within 3-5 years) >401-999 = extensive levels of plaque detected (high risk of heart attack, high levels of vascular disease are present, high likelihood of at least one significant coronary narrowing) *The calcium heart score quantifies the burden of coronary calcification/plaque in the coronary arteries. The calcium heart score is not able to evaluate the presence or burden of non-calcified (i.e. soft) plaque. There is no identifiable calcification in the aortic valve, mitral annulus or mitral valve, pericardium, or myocardium. Coronary CT Angiography The coronary arterial system is right dominant. Quantitative Stenosis Grading: Left Main (LM): The left main originates normally from the left sinus of Valsalva. The LM bifurcates into the left anterior descending artery and left circumflex artery. The LM is patent with no evidence of atherosclerosis. Left Anterior Descending (LAD) and Diagonal Branches: The LAD gives off 3 diagonal branch(es). The LAD and its branches are patent with no evidence of atherosclerosis. There is no evidence of LAD-myocardial bridge. Left Circumflex (LCX) and Obtuse Marginals (OM): The LCX gives off 1 Obtuse Marginal (OM) branch(es). The LCX and its branches are patent with no evidence of atherosclerosis. Right Coronary Artery (RCA): The RCA originates normally from the right sinus of Valsalva. The RCA gives off a posterior descending artery (PDA) and posterolateral (PL) branches. The RCA and its branches are patent with no evidence of atherosclerosis. Non-Coronary Cardiac Findings: Analysis of the left ventricular (LV) structure and function was performed after 3-D reconstruction of the LV from axial images, with user-corrected automatic contouring for assessment of LV volumes and user-defined reconstruction from oblique planes for measurement of 3-D cardiac structure and function. -The left ventricle systolic function is normal. -There is no left atrial appendage filling defect. Two right pulmonary veins and two left pulmonary veins drain normally into the left atrium. -No pericardial thickening or calcification. -Central and branch pulmonary arteries in the [id number] are unremarkable. -Thoracic aorta within the visualized thoracic aortic-branches in the [id number] is unremarkable. Extracardiac Structures No significant extra-cardiac findings. Note, however, that this study is focused on the cardiac findings. IMPRESSION -Absence of coronary calcification with an Agatston score = 0 using the AJ-130 method. -No evidence of significant flow-limiting atherosclerosis of the coronary arteries. -CAD-RADS 0. Management recommendations per ACC/AHA guidelines*, as clinically appropriate. *Recommendations: CAD RADS 0: Reassurance. Consider non-atherosclerotic causes of chest pain. CAD RADS 1: Consider non-atherosclerotic causes of chest pain. Consider preventive therapy and risk factor modification. CAD RADS 2: Consider non-atherosclerotic causes of chest pain. Consider preventive therapy and risk factor modification, particularly for patients with nonobstructive plaque in multiple segments. CAD RADS 3: Consider further functional testing. Consider symptom-guided anti-ischemic and preventive pharmacotherapy as well as risk factor modification per published guideline statements. CAD RADS 4A: Consider further functional testing or invasive coronary angiography with revascularization per published guideline statements. Consider symptom-guided anti-ischemic and preventive pharmacotherapy as well as risk factor modification per published guideline statements. CAD RADS 4B: Invasive coronary angiography recommended with revascularization per published guideline statements. Consider symptom-guided anti-ischemic and preventive pharmacotherapy as well as risk factor modification per published guideline statements. CAD RADS 5: Consider invasive angiography and/or viability assessment with revascularization per published guideline statements. Consider symptom-guided anti-ischemic and preventive pharmacotherapy as well as risk factor modification per published guideline statements. CRITICAL RESULT None COMMUNICATION Per this written report The coronary and cardiac findings of this CCTA were reviewed, reported, and signed by Ludwin Choe MD (Dredge Operator Supervisor) Conclusion Electronically signed by : Patsy Choe MD 01/04/2025 23:38:28
[2025-01-04 14:00] VITALS: BP 106/77; PULSE 61; RESP 18; TEMP 36.1; O2SAT 98
[2025-01-04 14:03] VITALS: BP 87/51; PULSE 61; RESP 18; O2SAT 100
[2025-01-04] MEDS: SODIUM CHLORIDE 0.9% 10ML SYR (RAD ONLY) 10 ML IV (14:12)
[2025-01-04] MEDS: IOPAMIDOL-370 (76%);100ML BOTTLE 85 ML IV (14:12)
[2025-01-04] MEDS: 0.9 % SODIUM CHLORIDE 50 ML VIAL 40 ML IV (14:12)
[2025-01-04 14:19] VITALS: BP 103/62; PULSE 64; RESP 18; O2SAT 100
[2025-01-04 15:04] LABS: Anion Gap 10.7 mEq/L (5-15); Chloride 105 mmol/L (98-107); Sodium 136 mmol/L (136-145)
== END 2025-01-04 14:20 | disposition home or self-care (01) ==
LOC: RT 10:44 → RAD 11:53
PROVIDERS: PCP Emergency Medicine; Visit Provider Physician Assistant
DX: R00.0 Tachycardia, unspecified (principal); R53.83 Other fatigue; R60.9 Edema, unspecified; R06.02 Shortness of breath; Z82.49 Family history of ischemic heart disease and other diseases of the circulatory system; R07.9 Chest pain, unspecified
CPT/HCPCS: 36415; 75574; 80048; 84703; 93306; Q9967